=== PATIENT | female | born 1960 | race Caucasian/White ===

== ENCOUNTER 2016-05-12 14:49 | Emergency (ER) | payer OTHER ==
[2016-05-12 14:53] VITALS: BP 152/93; PULSE 100; RESP 18; TEMP 98.1
--- NOTE | 2016-05-12 15:20 | ED ---
ENT HPI - General Chief complaint: Dental/Oral Stated complaint: Dental Pain Time Seen by Provider: 05/12/16 14:54 Source: patient, RN notes reviewed Mode of arrival: ambulatory Limitations: no limitations - History of Present Illness Initial comments: 56 yo female presents to the ER with cc of right-sided dental pain. Patient states that she had 2 teeth extracted earlier this week. Patient patient has some pain signs right-sided she was sent. Patient states that she hasn't had any fever or chills. Patient states she has pain to touch. Patient is discharged from the area. Patient states she was concerned due to increasing swelling. That she should be evaluated. No pain radiating into the neck. No difficulty normal was in the mouth. Patient denies any recent fever, chills, shortness of breath, chest pain, back pain, abdominal pain, nausea vomiting, numbness or tingling, dysuria or hematuria, constipation or diarrhea, headaches or visual changes, or any other current symptoms. - Related Data Home Medications Medication Instructions Recorded Confirmed Benazepril [Lotensin] 80 mg PO DAILY 05/20/15 05/12/16 DULoxetine HCL [Cymbalta] 60 mg PO DAILY 05/20/15 05/12/16 Estrogens, Conjugated [Premarin] 0.625 mg PO DAILY 05/20/15 05/12/16 Hydrochlorothiazide [Hydrodiuril] 12.5 mg PO DAILY 05/20/15 05/12/16 Levothyroxine Sodium [Synthroid] 25 mcg PO DAILY 05/20/15 05/12/16 Ranitidine HCl [Zantac] 150 mg PO BID 05/20/15 05/12/16 Previous Rx's Medication Instructions Recorded Acetaminophen-Codeine 300-30mg 1 each PO Q6H PRN #20 tablet 07/24/15 [Tylenol #3] HYDROcodone/APAP 7.5-325MG [[place] 1 tab PO Q6HR PRN #20 tab 07/24/15 7.5-325] Ibuprofen [Motrin] 800 mg PO Q6HR PRN #30 tab 07/24/15 Hydrocodone/Acetaminophen [[place] 1 each PO Q6HR PRN #20 tab 08/15/15 5-325] HYDROcodone/APAP 5-325MG [[place] 1 tab PO Q4HR PRN #20 tab 10/27/15 5-325] Penicillin V Potassium [Pen Vee K] 500 mg PO TID #40 tab 05/12/16 traMADol HCl [Ultram] 50 mg PO Q4H PRN #20 tab 05/12/16 Allergies Allergy/AdvReac Type Severity Reaction Status Date / Time cefaclor [From Ceclor] Allergy Unknown Verified 05/12/16 14:53 prochlorperazine Allergy Unknown Verified 05/12/16 14:53 [From Compazine] prochlorperazine edisylate Allergy Unknown Verified 05/12/16 14:53 [From Compazine] prochlorperazine maleate Allergy Unknown Verified 05/12/16 14:53 [From Compazine] tetracycline Allergy Nausea & Verified 05/12/16 14:53 Vomiting erythromycin base AdvReac Rash/Hives Verified 05/12/16 14:53 levofloxacin [From Levaquin] AdvReac Rash/Hives Verified 05/12/16 14:53 Review of Systems ROS Statement: Those systems with pertinent positive or pertinent negative responses have been documented in the HPI. ROS Other: All systems not noted in ROS Statement are negative. Past Medical History Past Medical History: Hypertension, Thyroid Disorder Additional Past Medical History / Comment(s): back pain History of Any Multi-Drug Resistant Organisms: None Reported Past Surgical History: Appendectomy, Hernia Repair, Hysterectomy, Tonsillectomy Additional Past Surgical History / Comment(s): hernia repair, (R) carpel tunnel surgery, (L) breast lumpectomy Past Psychological History: Depression Smoking Status: Current every day smoker Past Alcohol Use History: None Reported Past Drug Use History: None Reported General Exam Limitations: no limitations General appearance: alert, in no apparent distress Eye exam: Present: normal appearance, PERRL, EOMI. Absent: scleral icterus, conjunctival injection, periorbital swelling ENT exam: Present: normal exam, mucous membranes moist Expanded Ear exam: Present: normal external inspection Mouth exam: Absent: normal external inspection (Right-sided swelling of the face ), drooling, trismus, muffled voice, tongue normal, tongue elevation, laceration Teeth exam: Present: dental caries (Diffuse), gingival enlargement (tooth #30 and 29) Throat exam: normal inspection, tonsillar erythema Neck exam: Present: normal inspection. Absent: tenderness, meningismus, lymphadenopathy Respiratory exam: Present: normal lung sounds bilaterally. Absent: respiratory distress, wheezes, rales, rhonchi, stridor Cardiovascular Exam: Present: regular rate, normal rhythm, normal heart sounds. Absent: systolic murmur, diastolic murmur, rubs, gallop, clicks Neurological exam: Present: alert, oriented X3, CN II-XII intact. Absent: motor sensory deficit Psychiatric exam: Present: normal affect, normal mood Skin exam: Present: warm, dry, intact, normal color. Absent: rash Course Vital Signs 05/12/16 14:50 Temperature 98.1 F Pulse Rate 100 Respiratory 18 Rate Blood Pressure 152/93 O2 Sat by Pulse 98 Oximetry Medical Decision Making - Medical Decision Making 56-year-old female presents emergency Department chief complaint right-sided dental pain. This started over the last few days after having her teeth extracted With the patient and asked pain medication. We discussed close follow-up with her doctor. We'll start her on antibiotics and pain medication. We discussed follow-up with her dentist and return parameters. Patient stated that she understood all questions have been answered. She will be discharged home. Disposition Clinical Impression: Pain, dental Disposition: HOME SELF-CARE Condition: Stable Instructions: Toothache (ED) Additional Instructions: Please use medication as discussed. Please follow up with family doctor if symptoms have not improved over the next two days. Please return to the emergency room if your symptoms increase or worsen or for any other concerns. [facility] [id number] [place] [address] [phone] (existing clients only) For new clients: [phone] 1st consult: $50 (includes Xrays) Usually 30% less then private dentist for visits after. [employer] Have to pay $50 for Xrays anmd rest is covered. [phone] Prescriptions: Penicillin V Potassium [Pen Vee K] 500 mg PO TID #40 tab traMADol HCl [Ultram] 50 mg PO Q4H PRN #20 tab PRN Reason: Pain Referrals: Deena Figueroa MD [Primary Care Provider] - 1-2 days Time of Disposition: 15:20
== END 2016-05-12 15:25 | disposition home or self-care (01) ==
LOC: EC 14:49
DX: K02.9 Dental caries, unspecified (principal); I10 Essential (primary) hypertension; E07.9 Disorder of thyroid, unspecified; F32.9 Major depressive disorder, single episode, unspecified; F17.200 Nicotine dependence, unspecified, uncomplicated; Z79.899 Other long term (current) drug therapy; Z88.1 Allergy status to other antibiotic agents; Z88.8 Allergy status to other drugs, medicaments and biological substances; Z98.890 Other specified postprocedural states
CPT/HCPCS: 99282

== ENCOUNTER 2016-09-19 23:01 | Inpatient (IN) | payer MEDICAID, OTHER ==
[2016-09-19] MEDS ORDERED: SODIUM CHLORIDE 0.9% 1,000 ML IV STA (23:40)
[2016-09-19] MEDS ORDERED: LORazepam 1 MG TAB PO STA (23:41)
--- NOTE | 2016-09-19 23:46 | ED ---
Psych HPI - General Chief Complaint: Psychiatric Symptoms Stated Complaint: mental health Time Seen by Provider: 09/19/16 23:19 Source: patient Mode of arrival: ambulatory - History of Present Illness Initial Comments: 6 years old female with a history of depression depression has got worse over the last 6 months and she feels that she does not deserve to live. She tried suicide 2 days ago she approximately 12:30 pills so far but supple trying to kill herself. There before yesterday she took handful of Cymbalta and Norvasc. He continued to feel suicidal and is crying and stating that she do not deserve to live. She denies any headaches no chest pain or shortness of breath no abdominal pain no frequency urgency dysuria - Related Data Home Medications Medication Instructions Recorded Confirmed Benazepril [Lotensin] 80 mg PO DAILY 05/20/15 09/19/16 DULoxetine HCL [Cymbalta] 60 mg PO DAILY 05/20/15 09/19/16 Estrogens, Conjugated [Premarin] 0.625 mg PO DAILY 05/20/15 09/19/16 Hydrochlorothiazide [Hydrodiuril] 12.5 mg PO DAILY 05/20/15 09/19/16 Levothyroxine Sodium [Synthroid] 25 mcg PO DAILY 05/20/15 09/19/16 Ranitidine HCl [Zantac] 150 mg PO BID 05/20/15 09/19/16 Previous Rx's Medication Instructions Recorded Acetaminophen-Codeine 300-30mg 1 each PO Q6H PRN #20 tablet 07/24/15 [Tylenol #3] HYDROcodone/APAP 7.5-325MG [[place] 1 tab PO Q6HR PRN #20 tab 07/24/15 7.5-325] Ibuprofen [Motrin] 800 mg PO Q6HR PRN #30 tab 07/24/15 traMADol HCl [Ultram] 50 mg PO Q4H PRN #20 tab 05/12/16 Allergies Allergy/AdvReac Type Severity Reaction Status Date / Time cefaclor [From Ceclor] Allergy Unknown Verified 09/19/16 23:12 prochlorperazine Allergy Unknown Verified 09/19/16 23:12 [From Compazine] prochlorperazine edisylate Allergy Unknown Verified 09/19/16 23:12 [From Compazine] prochlorperazine maleate Allergy Unknown Verified 09/19/16 23:12 [From Compazine] tetracycline Allergy Nausea & Verified 09/19/16 23:12 Vomiting erythromycin base AdvReac Rash/Hives Verified 09/19/16 23:12 levofloxacin [From Levaquin] AdvReac Rash/Hives Verified 09/19/16 23:12 Review of Systems ROS Statement: Those systems with pertinent positive or pertinent negative responses have been documented in the HPI. ROS Other: All systems not noted in ROS Statement are negative. Past Medical History Past Medical History: Hypertension, Thyroid Disorder Additional Past Medical History / Comment(s): back pain History of Any Multi-Drug Resistant Organisms: None Reported Past Surgical History: Appendectomy, Hernia Repair, Hysterectomy, Tonsillectomy Additional Past Surgical History / Comment(s): hernia repair, (R) carpel tunnel surgery, (L) breast lumpectomy Past Psychological History: Depression Smoking Status: Current every day smoker Past Alcohol Use History: None Reported Past Drug Use History: None Reported General Exam - General Exam Comments Initial Comments: General: The patient is awake and alert, in severe distress, she is crying Skin: Skin is warm and dry and no rashes or lesions are noted. Eye: Pupils are equal, round and reactive to light, extra-ocular movements are intact; there is normal conjunctiva bilaterally. Ears, nose, mouth and throat: There are moist mucous membranes and no oral lesions. Neck: The neck is supple, there is no tenderness or JVD. Cardiovascular: There is a regular rate and rhythm. No murmur, rub or gallop is appreciated. Respiratory: To auscultation bilateral, no wheezing no rhonchi no distress respiratory pina noticed Gastrointestinal: Soft, non-distended, non-tender abdomen without masses or organomegaly noted. There is no rebound or guarding present. Bowel sounds are unremarkable. Back: There is no tenderness to palpation in the midline. There is no obvious deformity. Musculoskeletal: Normal ROM, no tenderness, There is no pedal edema. There is no calf tenderness or swelling. No cords were appreciated. Neurological: CN II-XII intact, Cranial nerves III through XII are intact. There are no obvious motor or sensory deficits. Coordination appears grossly intact. Speech is normal. Psychiatric: Cooperative, depressed, wants to kill herself when she attempted suicide twice in's. Limitations: no limitations Course Vital Signs 09/19/16 09/19/16 23:08 23:31 Temperature 98.7 F Pulse Rate 87 85 Respiratory 18 16 Rate Blood Pressure 88/51 92/53 O2 Sat by Pulse 95 96 Oximetry - Reevaluation(s) Reevaluation #1: 09/19/16 23:46 I have requested all and to call to poison control center and Interactions him in the meantime hydrate her with normal saline and give her some Ativan to calm her 09/20/16 01:35 Did speak with the poison control and they said she is fine from the medical standpoint she is clear she does have a bit of hypertension now blood pressure has come up above 100 she got 1 L of fluid and given another liter of fluids wide and then she be treated for the psych floor also reviewed her labs her labs look quite good Reevaluation #2: 09/20/16 01:36 EKG is normal sinus rhythm ventricular rate is 73 DE interval is 142 QRS duration is 90 QT/QTC 398/438 review of this EKG does not reveal any ST elevation or ST depression Medical Decision Making - Lab Data Result diagrams: 09/19/16 23:58 09/19/16 23:58 Lab Results 09/19/16 09/19/16 09/20/16 Range/Units 23:58 23:58 00:06 WBC 12.2 H (3.8-10.6) k/uL RBC 4.53 (3.80-5.40) m/uL Hgb 14.3 (11.4-16.0) gm/dL Hct 40.9 (34.0-46.0) % MCV 90.2 (80.0-100.0) fL MCH 31.6 (25.0-35.0) pg MCHC 35.1 (31.0-37.0) g/dL RDW 13.9 (11.5-15.5) % Plt Count 349 (150-450) k/uL Neutrophils % 54 % Lymphocytes % 37 % Monocytes % 5 % Eosinophils % 1 % Basophils % 1 % Neutrophils # 6.6 (1.3-7.7) k/uL Lymphocytes # 4.5 (1.0-4.8) k/uL Monocytes # 0.6 (0-1.0) k/uL Eosinophils # 0.1 (0-0.7) k/uL Basophils # 0.2 (0-0.2) k/uL Sodium 140 (137-145) mmol/L Potassium 3.6 (3.5-5.1) mmol/L Chloride 100 (98-107) mmol/L Carbon Dioxide 28 (22-30) mmol/L Anion Gap 12 mmol/L BUN 20 H (7-17) mg/dL Creatinine 1.20 H (0.52-1.04) mg/dL Est GFR (MDRD) Af Amer 56 (>60 ml/min/1.73 sqM) Est GFR (MDRD) Non-Af 46 (>60 ml/min/1.73 sqM) Glucose 144 H (74-99) mg/dL Plasma Lactic Acid Jemal (0.7-2.0) mmol/L Calcium 9.9 (8.4-10.2) mg/dL Total Bilirubin 0.4 (0.2-1.3) mg/dL AST 19 (14-36) U/L ALT 28 (9-52) U/L Alkaline Phosphatase 74 (38-126) U/L Total Protein 6.7 (6.3-8.2) g/dL Albumin 4.2 (3.5-5.0) g/dL Salicylates <1.0 mg/dL Urine Opiates Screen Detected H (NotDetected) Ur Oxycodone Screen Detected H (NotDetected) Urine Methadone Screen Not Detected (NotDetected) Ur Propoxyphene Screen Not Detected (NotDetected) Acetaminophen <10.0 ug/mL Ur Barbiturates Screen Detected H (NotDetected) U Tricyclic Antidepress Detected H (NotDetected) Ur Phencyclidine Scrn Not Detected (NotDetected) Ur Amphetamines Screen Not Detected (NotDetected) U Methamphetamines Scrn Not Detected (NotDetected) U Benzodiazepines Scrn Detected H (NotDetected) Urine Cocaine Screen Not Detected (NotDetected) U Marijuana (THC) Screen Detected H (NotDetected) Serum Alcohol <10 mg/dL 09/20/16 Range/Units 00:06 WBC (3.8-10.6) k/uL RBC (3.80-5.40) m/uL Hgb (11.4-16.0) gm/dL Hct (34.0-46.0) % MCV (80.0-100.0) fL MCH (25.0-35.0) pg MCHC (31.0-37.0) g/dL RDW (11.5-15.5) % Plt Count (150-450) k/uL Neutrophils % % Lymphocytes % % Monocytes % % Eosinophils % % Basophils % % Neutrophils # (1.3-7.7) k/uL Lymphocytes # (1.0-4.8) k/uL Monocytes # (0-1.0) k/uL Eosinophils # (0-0.7) k/uL Basophils # (0-0.2) k/uL Sodium (137-145) mmol/L Potassium (3.5-5.1) mmol/L Chloride (98-107) mmol/L Carbon Dioxide (22-30) mmol/L Anion Gap mmol/L BUN (7-17) mg/dL Creatinine (0.52-1.04) mg/dL Est GFR (MDRD) Af Amer (>60 ml/min/1.73 sqM) Est GFR (MDRD) Non-Af (>60 ml/min/1.73 sqM) Glucose (74-99) mg/dL Plasma Lactic Acid Jemal 1.8 (0.7-2.0) mmol/L Calcium (8.4-10.2) mg/dL Total Bilirubin (0.2-1.3) mg/dL AST (14-36) U/L ALT (9-52) U/L Alkaline Phosphatase (38-126) U/L Total Protein (6.3-8.2) g/dL Albumin (3.5-5.0) g/dL Salicylates mg/dL Urine Opiates Screen (NotDetected) Ur Oxycodone Screen (NotDetected) Urine Methadone Screen (NotDetected) Ur Propoxyphene Screen (NotDetected) Acetaminophen ug/mL Ur Barbiturates Screen (NotDetected) U Tricyclic Antidepress (NotDetected) Ur Phencyclidine Scrn (NotDetected) Ur Amphetamines Screen (NotDetected) U Methamphetamines Scrn (NotDetected) U Benzodiazepines Scrn (NotDetected) Urine Cocaine Screen (NotDetected) U Marijuana (THC) Screen (NotDetected) Serum Alcohol mg/dL Disposition Clinical Impression: Suicide attempt, Hypotension, Drug overdose Disposition: ADMITTED IP TO THIS HOSP Referrals: Deena Figueroa MD [Primary Care Provider] - 1-2 days
[2016-09-20 00:10] LABS: Basophils # (A) 0.2 k/uL (0-0.2); Basophils % (A) 1 %; CH 31.9; CHCM 35.5; Eosinophils # (A) 0.1 k/uL (0-0.7); Eosinophils % (A) 1 %; HCT 40.9 % (34.0-46.0); HDW 2.41; HGB 14.3 gm/dL (11.4-16.0); Luc # (Auto) 0.22; Luc % (Auto) 2; Lymphocytes # (A) 4.5 k/uL (1.0-4.8); Lymphocytes % (A) 37 %; MCH 31.6 pg (25.0-35.0); MCHC 35.1 g/dL (31.0-37.0); MCV 90.2 fL (80.0-100.0); Mean Platelet Volume 8.4; Monocytes # (A) 0.6 k/uL (0-1.0); Monocytes % (A) 5 %; Neutrophils # (A) 6.6 k/uL (1.3-7.7); Neutrophils % (A) 54 %; RBC 4.53 m/uL (3.80-5.40); RDW 13.9 % (11.5-15.5); WBC 12.2 k/uL (3.8-10.6); WBC (Perox) 11.51
[2016-09-20 00:21] LABS: ALT 28 U/L (9-52); AST 19 U/L (14-36); Acetaminophen <10.0 ug/mL; Alcohol <10 mg/dL; Alkaline Phosphatase 74 U/L (38-126); Anion Gap 12 mmol/L; Blood Urea Nitrogen 20 mg/dL (7-17); Calcium 9.9 mg/dL (8.4-10.2); Carbon Dioxide 28 mmol/L (22-30); Chloride 100 mmol/L (98-107); Glucose 144 mg/dL (74-99); Non-African American GFR(MDRD) 46 (>60 ml/min/1.73 sqM); Potassium 3.6 mmol/L (3.5-5.1); Salicylate <1.0 mg/dL; Sodium 140 mmol/L (137-145); Total Bilirubin 0.4 mg/dL (0.2-1.3); Total Protein 6.7 g/dL (6.3-8.2)
[2016-09-20] MEDS ORDERED: SODIUM CHLORIDE 0.9% 1,000 ML IV ONE (01:45)
[2016-09-20] MEDS ORDERED: MAG HYDROX/AL HYDROX/SIMETH 30 ML CUP PO PRN (02:38)
[2016-09-20] MEDS ORDERED: MAGNESIUM HYDROXIDE 2,400 MG/10 ML CUP PO PRN (02:38)
[2016-09-20] MEDS ORDERED: ZIPRASIDONE 20 MG VIAL IM PRN (02:38)
[2016-09-20 03:33] LABS: Appearance,Urine Cloudy (Clear); Bacteria,Urine Rare /hpf; Bilirubin,Urine Negative (Negative); Glucose,Urine (UA) 2+ (Negative); Ketones,Urine Trace (Negative); Leukocyte Esterase,Urine Negative (Negative); Mucus,Urine Rare /hpf; Nitrite,Urine Negative (Negative); Particle Count 8120; Protein,Urine Trace (Negative); RBC,Urine 2 /hpf (0-5); Specific Gravity,Urine 1.029 (1.001-1.035); Squamous Epithelial Cell,Urine 9 /hpf (0-4); UA Billing (MACRO vs. MICRO) MICRO; WBC,Urine 1 /hpf (0-5)
[2016-09-20] MEDS: traZODone HCL 100 MG TAB PO SCH ×2 (04:03→20:33)
[2016-09-20 04:46] VITALS: BMI 32.3
[2016-09-20] MEDS: LEVOTHYROXINE 25 MCG TAB PO SCH (05:36)
[2016-09-20] MEDS: NICOTINE 14MG/24HR PATCH TRANSDERM SCH (08:46)
[2016-09-20] MEDS: FAMOTIDINE 20 MG TAB PO SCH ×2 (08:47→20:33)
[2016-09-20] MEDS: ESTROGENS, CONJUGATED 0.625 MG TAB PO SCH (08:48)
[2016-09-20] MEDS ORDERED: LISINOPRIL 20 MG TAB PO SCH (09:00)
[2016-09-20] MEDS ORDERED: HYDROCHLOROTHIAZIDE 25 MG TAB PO SCH (09:00)
[2016-09-20] MEDS ORDERED: amLODIPine 5 MG TAB PO SCH (09:00)
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
[2016-09-20] MEDS ORDERED: IPRATROPIUM-ALBUTEROL 3 ML NEB INHALATION PRN (14:28)
--- NOTE | 2016-09-20 14:33 | P.CONS ---
History of Present Illness - Reason for Consult Lightheadedness, hypotension. - History of Present Illness 56-year-old female admitted secondary to severe depression and suicide attempt twice to psychiatric unit. Medicine was consulted for medical clearance. Patient was complaining of lightheadedness and neck pain. Patient blood pressures are low and lowest systolic blood pressure is as low as 80. Patient is on 3 antidepressants medications including hydrochlorothiazide, amlodipine and lisinopril. I'm discontinued and hydrochlorothiazide and amlodipine and cutting down lisinopril dose from 80 mg daily to 10 mg daily with monitoring of blood pressure. Patient has cervical degenerative neck disease because of which patient is comparing of neck pain without any radicular symptoms or weakness in the arms. Patient denied any fever, chills, nausea, dysuria. Patient does smoke and does have minimal decreased air entry in the right lung kwok patient was started on Symbicort and albuterol ipratropium nebulizations. Review of Systems REVIEW OF SYSTEMS: CONSTITUTIONAL: No fever, no malaise, no fatigue. HEENT: No recent visual problems or hearing problems. Denied any sore throat. CARDIOVASCULAR: No chest pain, orthopnea, PND, no palpitations, no syncope. Minimal lightheadedness PULMONARY: No shortness of breath, no cough, no hemoptysis. GASTROINTESTINAL: No diarrhea, no nausea, no vomiting, no abdominal pain. Normoactive bowel sounds. NEUROLOGICAL: No headaches, no weakness, no numbness. HEMATOLOGICAL: Denies any bleeding or petechiae. GENITOURINARY: Denies any burning micturition, frequency, or urgency. MUSCULOSKELETAL/RHEUMATOLOGICAL: Denies any joint pain, swelling, or any muscle pain. ENDOCRINE: Denies any polyuria or polydipsia. The rest of the 14-point review of systems is negative. Past Medical History Past Medical History: COPD, Hypertension, Thyroid Disorder Additional Past Medical History / Comment(s): back pain History of Any Multi-Drug Resistant Organisms: None Reported Past Surgical History: Appendectomy, Hernia Repair, Hysterectomy, Tonsillectomy Additional Past Surgical History / Comment(s): hernia repair, (R) carpel tunnel surgery, (L) breast lumpectomy Past Psychological History: Depression Smoking Status: Current every day smoker Past Alcohol Use History: None Reported Past Drug Use History: Marijuana, Prescription Drug Abuse Medications and Allergies Home Medications Medication Instructions Recorded Confirmed Type DULoxetine HCL [Cymbalta] 60 mg PO DAILY 05/20/15 09/20/16 History Estrogens, Conjugated [Premarin] 0.625 mg PO DAILY 05/20/15 09/20/16 History Levothyroxine Sodium [Synthroid] 25 mcg PO DAILY 05/20/15 09/20/16 History Ranitidine HCl [Zantac] 150 mg PO BID 05/20/15 09/20/16 History Benazepril HCl [Benazepril HCl] 40 mg PO BID 09/20/16 09/20/16 History Butalb/APAP/Caff 50-325-40Mg 1 tab PO DAILY PRN 09/20/16 09/20/16 History [Fioricet 50-325-40] Hydrochlorothiazide 25 mg PO DAILY 09/20/16 09/20/16 History [Hydrochlorothiazide] amLODIPine [Norvasc] 5 mg PO DAILY 09/20/16 09/20/16 History tiZANidine [Zanaflex] 4 - 8 mg PO HS 09/20/16 09/20/16 History Allergies Allergy/AdvReac Type Severity Reaction Status Date / Time cefaclor [From Ceclor] Allergy Unknown Verified 09/19/16 23:12 prochlorperazine Allergy Unknown Verified 09/19/16 23:12 [From Compazine] prochlorperazine edisylate Allergy Unknown Verified 09/19/16 23:12 [From Compazine] prochlorperazine maleate Allergy Unknown Verified 09/19/16 23:12 [From Compazine] tetracycline Allergy Nausea & Verified 09/19/16 23:12 Vomiting erythromycin base AdvReac Rash/Hives Verified 09/19/16 23:12 levofloxacin [From Levaquin] AdvReac Rash/Hives Verified 09/19/16 23:12 Physical Exam Vitals: Vital Signs Temp Pulse Pulse Pulse Resp BP BP 09/20/16 08:50 84 16 83/50 09/20/16 06:50 97.6 F 76 18 09/20/16 04:38 97.0 F L 74 20 09/20/16 03:01 83 18 95/59 09/20/16 01:46 78 16 100/62 09/19/16 23:31 85 16 92/53 09/19/16 23:08 98.7 F 87 18 88/51 BP Pulse Ox 09/20/16 08:50 09/20/16 06:50 78/50 09/20/16 04:38 98/61 97 09/20/16 03:01 93 L 09/20/16 01:46 98 09/19/16 23:31 96 09/19/16 23:08 95 Intake and Output 09/19/16 09/20/16 09/20/16 22:59 06:59 14:59 Other: Weight 77.7 kg PHYSICAL EXAMINATION: GENERAL: The patient is alert and oriented x3, not in any acute distress. Well developed, well nourished. HEENT: Pupils are round and equally reacting to light. EOMI. No scleral icterus. No conjunctival pallor. Normocephalic, atraumatic. No pharyngeal erythema. No thyromegaly. CARDIOVASCULAR: S1 and S2 present. No murmurs, rubs, or gallops. PULMONARY: Chest is clear to auscultation, no wheezing or crackles. ABDOMEN: Soft, nontender, nondistended, normoactive bowel sounds. No palpable organomegaly. MUSCULOSKELETAL: No joint swelling or deformity. EXTREMITIES: No cyanosis, clubbing, or pedal edema. NEUROLOGICAL: Gross neurological examination did not reveal any focal deficits. SKIN: No rashes. Results CBC & Chem 7: 09/19/16 23:58 09/19/16 23:58 Labs: Abnormal Lab Results - Last 24 Hours (Table) 09/19/16 09/19/16 09/20/16 Range/Units 23:58 23:58 00:06 WBC 12.2 H (3.8-10.6) k/uL BUN 20 H (7-17) mg/dL Creatinine 1.20 H (0.52-1.04) mg/dL Glucose 144 H (74-99) mg/dL Urine Appearance (Clear) Urine Protein (Negative) Urine Glucose (UA) (Negative) Urine Ketones (Negative) Ur Squamous Epith Cells (0-4) /hpf Urine Bacteria (None) /hpf Hyaline Casts (0-2) /lpf Urine Mucus (None) /hpf Urine Opiates Screen Detected H (NotDetected) Ur Oxycodone Screen Detected H (NotDetected) Ur Barbiturates Screen Detected H (NotDetected) U Tricyclic Antidepress Detected H (NotDetected) U Benzodiazepines Scrn Detected H (NotDetected) U Marijuana (THC) Screen Detected H (NotDetected) 09/20/16 Range/Units 00:06 WBC (3.8-10.6) k/uL BUN (7-17) mg/dL Creatinine (0.52-1.04) mg/dL Glucose (74-99) mg/dL Urine Appearance Cloudy H (Clear) Urine Protein Trace H (Negative) Urine Glucose (UA) 2+ H (Negative) Urine Ketones Trace H (Negative) Ur Squamous Epith Cells 9 H (0-4) /hpf Urine Bacteria Rare H (None) /hpf Hyaline Casts 9 H (0-2) /lpf Urine Mucus Rare H (None) /hpf Urine Opiates Screen (NotDetected) Ur Oxycodone Screen (NotDetected) Ur Barbiturates Screen (NotDetected) U Tricyclic Antidepress (NotDetected) U Benzodiazepines Scrn (NotDetected) U Marijuana (THC) Screen (NotDetected) Assessment and Plan Plan: #1 lightheadedness: Secondary to hypotension related to antidepressant medications and medication regimen changes as mentioned in the interval history. #2 COPD with continued smoking, patient is not in note exacerbation but does have minimally decreased air entry into right lung kwok without any significant cough. Patient was started on Symbicort albuterol and ipratropium nebulizations as mentioned above. #3 cervical degenerative spine disease: Nonsteroidal anti-inflammatories and Tylenol. #4 minimally acute renal failure: Secondary to excessive antidepressant medications expected to improve with discontinue of these medications and patient will be increased to drink water creatinine is 1. or believe and this is in the form of tramadol is okay for her pain #5 hypothyroidism #6 severe depression and suicidal ideation management as per primary service #7 marijuana abuse counseling was provided #8 asymptomatic bacteriuria: Patient urine sample is mostly contaminated does not have any solid signs or symptoms of urinary tract infection will not require any antibiotics at this time.
[2016-09-20] MEDS: buPROPion 75 MG TAB PO SCH ×2 (15:40→20:31)
[2016-09-20] MEDS: tiZANidine 4 MG TAB PO SCH (20:30)
[2016-09-20] MEDS ORDERED: MIRTAZAPINE 15 MG TAB PO SCH (21:00)
[2016-09-20] MEDS: SYMBICORT 80-4.5 MCG INHALER INHALATION SCH (21:35)
[2016-09-21] MEDS: LEVOTHYROXINE 25 MCG TAB PO SCH (05:28)
[2016-09-21] MEDS: LISINOPRIL 10 MG TAB PO SCH (08:51)
[2016-09-21] MEDS: NICOTINE 14MG/24HR PATCH TRANSDERM SCH (08:51)
[2016-09-21] MEDS: ESTROGENS, CONJUGATED 0.625 MG TAB PO SCH (08:51)
[2016-09-21] MEDS: FAMOTIDINE 20 MG TAB PO SCH (08:52)
[2016-09-21] MEDS: tiZANidine 4 MG TAB PO SCH ×2 (08:52→20:33)
[2016-09-21] MEDS: buPROPion 75 MG TAB PO SCH ×3 (08:52→20:33)
[2016-09-21] MEDS: SYMBICORT 80-4.5 MCG INHALER INHALATION SCH ×2 (09:25→18:50)
--- NOTE | 2016-09-21 14:07 | P.PN ---
Progress Note - Text INTERVERAL HISTORY: Discussed patient during treatment team meeting, review of record, met with patient. Staff reports that she did not attend any groups. She has remained in her room in bed. Today she was paged to the nurse's station and she came. She reports that she has been sleeping during the day that is a surprise to her because when she was at home she was not sleeping at all. She does not report any problems with the Wellbutrin no increased anxiety and no decreased sleep. Today she reports that she is no longer upset or frustrated that she failed at killing herself. She states that she has a loving family and that she can't explain why she would do something like that. She states that she is going to let her boyfriend take care of her pills so that she doesn't have access to them if she does start to feel suicidal again. She states she is also going to have him get rid of any medication that she is not taking. She has taken a shower and wash her hair. MENTAL STATUS EXAM: Alert and oriented [address], fair eye contact. Speech low volume with decreased rate and production but more than yesterday, with spontaneous speech. Coherent logical and goal directed TP no HUMAIRA no FOI no delusions no ideas of reference Mood dysphoric, affect full range decreased intensity Denies suicidal ideation, no homicidal ideation Insight Limited judgment grossly intact for treatment purposes IMPRESSIONS: 56-year-old single female brought into the emergency room by her long-term boyfriend because she made a suicide attempt 2 days in a row, she is upset that she was unsuccessful, feels hopeless worthless useless, dysphoric, insomnia with disturbed sleep, psychomotor retardation but a coherent and logical goal directed thought process. No auditory or visual hallucinations no delusions or paranoid ideation reported. Concentration and memory is impaired, poor ADLs. Today September 21 she is showing improved hygiene, more eye contact more spontaneous speech. Still dysphoric but now she is no longer wishing that she had succeeded with her suicide overdoses. Major depressive disorder, recurrent, severe Suicide attempt 2 times in 2 days Cannabis use disorder, mild PLAN: Continue inpatient psychiatric admission, for safety and treatment. Suicide precautions every 15 minutes Hospitalist to assess physical problems including hypertension. Labs reviewed Start Wellbutrin XL 300mg tomorrow morning. D/C Remeron Trazodone 100 mg daily at bedtime when necessary insomnia Milieu therapy.
[2016-09-22] MEDS: traZODone HCL 100 MG TAB PO PRN ×2 (00:07→22:24)
[2016-09-22] MEDS: LEVOTHYROXINE 25 MCG TAB PO SCH (06:28)
[2016-09-22] MEDS: tiZANidine 4 MG TAB PO SCH ×2 (08:38→20:04)
[2016-09-22] MEDS: ESTROGENS, CONJUGATED 0.625 MG TAB PO SCH (08:38)
[2016-09-22] MEDS: NICOTINE 14MG/24HR PATCH TRANSDERM SCH (08:38)
[2016-09-22] MEDS: LISINOPRIL 10 MG TAB PO SCH (08:38)
[2016-09-22] MEDS: FAMOTIDINE 20 MG TAB PO SCH (08:38)
[2016-09-22] MEDS: buPROPion XL 300 MG TAB.ER.24H PO SCH (08:39)
[2016-09-22] MEDS: SYMBICORT 80-4.5 MCG INHALER INHALATION SCH ×2 (09:00→19:30)
--- NOTE | 2016-09-22 15:19 | P.PN ---
Progress Note - Text Date of service: 09/22/2016 Chief complaint: "I feel better today" Subjective: The patient has been seen today as follow-up, chart reviewed, case discussed with the treatment team. Patient reports her depression is much less today and she denied suicidal ideation. The patient slept about 6 hours and reports feeling rested this morning. She reported participation in groups and other milieu activities. The patient hasn't family meeting tomorrow to address discharge plan. The patient denies any manic symptoms including sustained period of time with elevated or irritable mood, impulsive or irrational behavior , inflated self-esteem, or absence need to sleep due to increases goal-directed activities. The patient denies any auditory or visual hallucinations. Also the patient denies any paranoid ideation. Review of other systems: Patient denies any physical symptoms besides what has been mentioned above. No breathing problems, no chest pain reported today. Objective: Vitals has been reviewed. Mental status examination; Appearance: The patient appears stated age, adequately groomed, no specific features. Gait/posture: Normal gait, Normal arm swinging: No abnormal movements. Attitude and behavior: engaged, cooperative, normal eye contact. Motor activity: Normal psychomotor activity Speech: Normal rate, rest, and articulated Mood: Anxious Affect: Constricted Thought form: goal-directed, linear, coherent. Thought content: Non-delusional, denies suicidal thoughts, denies homicidal thoughts, denies intentions or plans. Perception: Denies any auditory or visual hallucinations Attention: No impairment. Patient was able to repeat serial 7. Orientation: Patient patient was fully oriented to time place person and situation. Insight: Patient has limited insight about his psychiatric disorder. Judgment: Patient has limited judgment about his psychiatric treatment. Assessment: Major depressive disorder, recurrent, severe Cannabis use disorder, mild Plan: Continue with inpatient psychiatric hospitalization for monitoring and continue treatment. Continue group therapy and other unit activities. Continue follow up with medical team to address physical problems including hypertension and hypothyroidism. Continue psychiatric medications: Wellbutrin for depression, trazodone for depression and insomnia. Discharge planning is ongoing.
[2016-09-22] MEDS: hydrOXYzine PAMOATE 25 MG CAP PO PRN (20:06)
[2016-09-23] MEDS: LEVOTHYROXINE 25 MCG TAB PO SCH (06:04)
[2016-09-23] MEDS: buPROPion XL 300 MG TAB.ER.24H PO SCH (08:36)
[2016-09-23] MEDS: tiZANidine 4 MG TAB PO SCH ×2 (08:36→21:03)
[2016-09-23] MEDS: NICOTINE 14MG/24HR PATCH TRANSDERM SCH (08:36)
[2016-09-23] MEDS: FAMOTIDINE 20 MG TAB PO SCH (08:36)
[2016-09-23] MEDS: LISINOPRIL 10 MG TAB PO SCH ×2 (08:36→21:04)
[2016-09-23] MEDS: ESTROGENS, CONJUGATED 0.625 MG TAB PO SCH (08:36)
[2016-09-23] MEDS: SYMBICORT 80-4.5 MCG INHALER INHALATION SCH ×2 (09:00→21:01)
[2016-09-23] MEDS: ACETAMINOPHEN TAB 325 MG TAB PO PRN ×2 (10:51→14:48)
--- NOTE | 2016-09-23 11:07 | P.PN ---
Progress Note - Text Date of service: 09/23/2016 Chief complaint: "My legs are swollen and I feel puffy today " Subjective: The patient has been seen today as follow-up, chart reviewed, case discussed with the treatment team. Patient slept about 4 hours last night. Patient has been going to groups and other unit activities. Patient reports no appetite problems. Patient reports has been feeling increase swelling in her legs and puffiness in her face and her hands. Patient reports has been taking HCTZ as home medications but never resumed when she came to the hospital. Discussed with nurses to call medical team to evaluated adding HCTZ. Patient denies feeling hopeless and he denies severe depression or severe anxiety. She denies suicidal or homicidal thoughts, intention, or plans reviewed The patient denies any manic symptoms. The patient denies any auditory or visual hallucinations. Also the patient denies any paranoid ideation. Review of other systems: Patient denies any physical symptoms besides what has been mentioned above. No breathing problems, no chest pain reported today. Objective: Vitals has been reviewed. Mental status examination; Appearance: The patient appears stated age, adequately groomed, no specific features. Gait/posture: Normal gait, Normal arm swinging: No abnormal movements. Attitude and behavior: engaged, cooperative, normal eye contact. Motor activity: Normal psychomotor activity Speech: Normal rate, rest, and articulated Mood: Anxious Affect: Constricted Thought form: goal-directed, linear, coherent. Thought content: Non-delusional, denies suicidal thoughts, denies homicidal thoughts, denies intentions or plans. Perception: Denies any auditory or visual hallucinations Attention: No impairment. Orientation: Patient patient was fully oriented to time place person and situation. Insight: Patient has limited insight about his psychiatric disorder. Judgment: Patient has limited judgment about his psychiatric treatment. Assessment: Major depressive disorder, recurrent, severe Cannabis use disorder, mild Plan: Continue with inpatient psychiatric hospitalization for monitoring and continue treatment. Continue group therapy and other unit activities. Continue follow up with medical team to address leg edema and other physical problems including hypertension and hypothyroidism. Continue psychiatric medications: Wellbutrin for depression, trazodone for depression and insomnia. Discharge planning is ongoing.
[2016-09-23] MEDS: amLODIPine 5 MG TAB PO SCH (12:35)
[2016-09-23] MEDS: HYDROCHLOROTHIAZIDE 25 MG TAB PO SCH (12:35)
[2016-09-23] MEDS ORDERED: cloNIDine HCL 0.1 MG TAB PO PRN (15:49)
--- NOTE | 2016-09-23 15:52 | P.PN ---
Subjective This 56-year-old woman who was admitted. Evaluation is complaining of a headache. Blood pressure is elevated. Patient also COPD. No chest pain or palpitation or shortness of breath. Objective - Vital Signs Vital signs: Vital Signs Temp 97.7 F 09/23/16 06:33 Pulse 69 09/23/16 12:36 Resp 16 09/23/16 12:36 BP 127/66 09/23/16 12:36 Pulse Ox 97 09/20/16 04:38 Intake & Output 09/22/16 09/23/16 09/23/16 18:59 06:59 18:59 Weight 79.8 kg - Exam On exam, alert and oriented x3. HEENT: Conjunctivae normal. eyes normal. NECK: No JVD. No thyroid enlargement. No LNs CARDIOVASCULAR: S1, S2 muffled. No murmur RESPIRATION: Breath sounds diminished in the bases. No rhonchi or crackles. No bronchial breathing. ABDOMEN: Soft, nontender . No guarding. no masses palpable. No ascites, No hepatosplenomegaly.Bowel sounds heard. LEGS: No edema. no swelling NERVOUS SYSTEM: Cranial N 2-12 grossly normal. Moves all 4 limbs. No focal deficits. No sensory deficit. No signs of cerebellar dysfucntion. Skin: no ulcer no rash Joints: No active swelling. No inflammation. Lymphatic system. No LN neck axilla or groin. - Labs CBC & Chem 7: 09/19/16 23:58 09/19/16 23:58 Assessment and Plan Plan: Assessment 1. Headache 2. Hypertension 3. COPD 4. Cervical DJD 5. Mild leg edema. Plan I would recommend to resume the home medication of Norvasc and hydrochloric acid. Increase the dose of lisinopril. Use when necessary clonidine. We'll be happy to review. Recommend repeat labs CBC and BMP.
[2016-09-23 16:25] LABS: Basophils % (A) 1 %; CHCM 34.1; Eosinophils # (A) 0.1 k/uL (0-0.7); Eosinophils % (A) 2 %; HCT 37.3 % (34.0-46.0); HDW 2.41; HGB 12.8 gm/dL (11.4-16.0); Luc # (Auto) 0.16; Luc % (Auto) 2; Lymphocytes # (A) 2.2 k/uL (1.0-4.8); Lymphocytes % (A) 34 %; MCH 31.4 pg (25.0-35.0); MCHC 34.3 g/dL (31.0-37.0); MCV 91.4 fL (80.0-100.0); Mean Platelet Volume 7.5; Monocytes # (A) 0.4 k/uL (0-1.0); Monocytes % (A) 6 %; Neutrophils # (A) 3.6 k/uL (1.3-7.7); Neutrophils % (A) 56 %; RBC 4.08 m/uL (3.80-5.40); RDW 13.4 % (11.5-15.5); WBC 6.5 k/uL (3.8-10.6); WBC (Perox) 6.66
[2016-09-23] MEDS ORDERED: IBUPROFEN 200 MG TAB PO PRN (16:31)
[2016-09-23 16:42] LABS: Anion Gap 8 mmol/L; Blood Urea Nitrogen 15 mg/dL (7-17); Carbon Dioxide 28 mmol/L (22-30); Chloride 102 mmol/L (98-107); Glucose 105 mg/dL (74-99); Non-African American GFR(MDRD) >60 (>60 ml/min/1.73 sqM); Potassium 4.4 mmol/L (3.5-5.1); Sodium 138 mmol/L (137-145)
[2016-09-23] MEDS: hydrOXYzine PAMOATE 25 MG CAP PO PRN (18:02)
[2016-09-23] MEDS ORDERED: FUROSEMIDE 40 MG TAB PO STA (18:14)
[2016-09-23] MEDS: traZODone HCL 100 MG TAB PO PRN (21:06)
[2016-09-24] MEDS: LEVOTHYROXINE 25 MCG TAB PO SCH (05:33)
[2016-09-24] MEDS: ACETAMINOPHEN TAB 325 MG TAB PO PRN ×2 (06:27→13:55)
[2016-09-24] MEDS: tiZANidine 4 MG TAB PO SCH (08:41)
[2016-09-24] MEDS: NICOTINE 14MG/24HR PATCH TRANSDERM SCH (08:41)
[2016-09-24] MEDS: HYDROCHLOROTHIAZIDE 25 MG TAB PO SCH (08:42)
[2016-09-24] MEDS: buPROPion XL 300 MG TAB.ER.24H PO SCH (08:42)
[2016-09-24] MEDS: ESTROGENS, CONJUGATED 0.625 MG TAB PO SCH (08:42)
[2016-09-24] MEDS: FAMOTIDINE 20 MG TAB PO SCH (08:42)
[2016-09-24] MEDS: amLODIPine 5 MG TAB PO SCH (08:42)
[2016-09-24] MEDS: LISINOPRIL 10 MG TAB PO SCH (08:42)
[2016-09-24] MEDS: SYMBICORT 80-4.5 MCG INHALER INHALATION SCH (09:02)
[2016-09-24 09:59] VITALS: TEMP 98.6
--- NOTE | 2016-09-24 10:07 | P.PN ---
Progress Note - Text INTERVERAL HISTORY: Discussed patient during treatment team meeting, review of record, met with patient. Staff reports over the weekend that she had elevated blood pressure, Dr. Mejía saw her yesterday and restarted her home medication, increase lisinopril, and a one-time dose of Lasix. Patient reports that she had a terrible headache yesterday and was afraid to tell anybody for fear that they would think she was drug seeking. Staff found her crying in her room related to the headache that she had. Her blood pressure remains elevated at this point. Otherwise patient states that she is feeling better, notes the irony of the fact that she tried to kill her self with blood pressure medicines, and now worried that her blood pressure is going to kill her. She is able to laugh at that and see that she has made progress in that she is no longer wanting to kill herself and wants to live. She is worried about her blood pressure but otherwise she says she is feeling better and that she wants to go home today if possible. MENTAL STATUS EXAM: Alert and oriented [address], good eye contact. Speech low volume with decreased rate and production but more than yesterday, with spontaneous speech. Coherent logical and goal directed TP no HUMAIRA no FOI no delusions no ideas of reference Mood neutral to euthymic, affect full range normal intensity Denies suicidal ideation, no homicidal ideation Insight Limited judgment grossly intact for treatment purposes IMPRESSIONS: 56-year-old single female brought into the emergency room by her long-term boyfriend because she made a suicide attempt 2 days in a row, she is upset that she was unsuccessful, feels hopeless worthless useless, dysphoric, insomnia with disturbed sleep, psychomotor retardation but a coherent and logical goal directed thought process. No auditory or visual hallucinations no delusions or paranoid ideation reported. Concentration and memory is impaired, poor ADLs. Today much improved, good eye contact euthymic mood, affect full range. No suicidal ideation. Appropriate concerned/worried about her elevated blood pressure. Major depressive disorder, recurrent, severe Suicide attempt 2 times in 2 days Cannabis use disorder, mild PLAN: Continue inpatient psychiatric admission, for safety and treatment. Suicide precautions every 15 minutes Recheck blood pressure, if it remains elevated hospitalist to reassess . If hypertension continues with additional antihypertensive medicines we may need to stop the Wellbutrin due to its potential to increase both systolic and diastolic blood pressure. If that is the case we will need to start another antidepressant Cymbalta failed, would probably try Celexa or Lexapro. Trazodone 100 mg daily at bedtime when necessary insomnia Milieu therapy. Vitals reviewed.
--- NOTE | 2016-09-24 12:20 | P.DS ---
Providers Date of admission: 09/20/16 02:32 Expected date of discharge: 09/24/16 Attending physician: Dodie Dickson MD Consults: 09/20/16 02:38 Consult Physician Routine Consulting Provider: Nestor Mejía Consult Reason/Comments: H&P, with medical followup Do you want consulting provider notified?: Yes, Notify in am Primary care physician: Henry Shaffer Hospital Course: BRIEF ADMISSION HISTORY: Patient was admitted on a voluntary form to the unit after making 2 suicide attempts with her hypertensive medications. She had tried the day previous and failed then the second suicide attempt her boyfriend discovered and brought her in. She was noted to be feeling depressed, hopeless, worthless, useless. HOSPITAL COURSE: Patient was noted to be poorly groomed, poor eye contact low volume and decreased spontaneous speech. She initially spent the first 2 days in her room not engaging in treatment. She was started on Wellbutrin 75 mg 3 times a day and titrated up to 300 mg XL every morning. She had some hypertension over the weekend this was treated with an increase of lisinopril, and to restart her Norvasc. She was also noted to have edema. The edema has resolved after one course of Lasix. Her sleep after she was given Lasix was interrupted due to having to urinate but otherwise she reports that her sleep is better. Today she reports that she is feeling much better and would like to go home. She has improved participation as well as attending groups. Cymbalta was discontinued when she arrived here. MENTAL STATUS EXAM: Alert and oriented [address] clothing, good eye contact. Speech low volume with decreased rate and production but more than yesterday, with spontaneous speech. Coherent logical and goal directed TP no HUMAIRA no FOI no delusions no ideas of reference Mood neutral to euthymic, affect full range normal intensity Denies suicidal ideation, no homicidal ideation Insight Limited judgment grossly intact for treatment purposes IMPRESSIONS: 56-year-old single female brought into the emergency room by her long-term boyfriend because she made a suicide attempt 2 days in a row, she is upset that she was unsuccessful, feels hopeless worthless useless, dysphoric, insomnia with disturbed sleep, psychomotor retardation but a coherent and logical goal directed thought process. No auditory or visual hallucinations no delusions or paranoid ideation reported. Concentration and memory is impaired, poor ADLs. Today much improved, good eye contact euthymic mood, affect full range. No suicidal ideation. Appropriate concerned/worried about her elevated blood pressure. Major depressive disorder, recurrent, severe Suicide attempt 2 times in 2 days Cannabis use disorder, mild PLAN: Blood pressure has been controlled. Will discharge today, social work will arrange follow-up care. Wellbutrin XL 300 mg every morning Trazodone 100 mg daily at bedtime when necessary insomnia Vistaril/hydroxyzine 25 mg by mouth every 3 times a day when necessary severe anxiety Pertinent Studies: none Procedures: none Patient Condition at Discharge: Stable Plan - Discharge Summary New Discharge Prescriptions: New buPROPion XL [Wellbutrin XL] 300 mg PO DAILY #30 tab hydrOXYzine PAMOATE [Vistaril] 25 mg PO Q6HR PRN #10 cap PRN Reason: Agitation Or Acute Anxiety Lisinopril [Zestril] 10 mg PO BID #60 tab traZODone HCL [Desyrel] 100 mg PO HS PRN #30 tab PRN Reason: Insomnia Continue Ranitidine HCl [Zantac] 150 mg PO BID Levothyroxine Sodium [Synthroid] 25 mcg PO DAILY Estrogens, Conjugated [Premarin] 0.625 mg PO DAILY Hydrochlorothiazide 25 mg PO DAILY amLODIPine [Norvasc] 5 mg PO DAILY Butalb/APAP/Caff 50-325-40Mg [Fioricet 50-325-40] 1 tab PO DAILY PRN PRN Reason: Headache Benazepril HCl 40 mg PO BID tiZANidine [Zanaflex] 4 - 8 mg PO HS Discontinued DULoxetine HCL [Cymbalta] 60 mg PO DAILY Discharge Medication List Estrogens, Conjugated [Premarin] 0.625 mg PO DAILY 05/20/15 [History] Levothyroxine Sodium [Synthroid] 25 mcg PO DAILY 05/20/15 [History] Ranitidine HCl [Zantac] 150 mg PO BID 05/20/15 [History] Benazepril HCl 40 mg PO BID 09/20/16 [History] Butalb/APAP/Caff 50-325-40Mg [Fioricet 50-325-40] 1 tab PO DAILY PRN 09/20/16 [ History] Hydrochlorothiazide 25 mg PO DAILY 09/20/16 [History] amLODIPine [Norvasc] 5 mg PO DAILY 09/20/16 [History] tiZANidine [Zanaflex] 4 - 8 mg PO HS 09/20/16 [History] Lisinopril [Zestril] 10 mg PO BID #60 tab 09/24/16 [Rx] buPROPion XL [Wellbutrin XL] 300 mg PO DAILY #30 tab 09/24/16 [Rx] hydrOXYzine PAMOATE [Vistaril] 25 mg PO Q6HR PRN #10 cap 09/24/16 [Rx] traZODone HCL [Desyrel] 100 mg PO HS PRN #30 tab 09/24/16 [Rx] Follow up Appointment(s)/Referral(s): Deena Figueroa MD [Primary Care Provider] - 1-2 days Discharge Disposition: HOME SELF-CARE
[2016-09-24 14:03] VITALS: BP 136/82; PULSE 80; RESP 18
== END 2016-09-24 14:20 | disposition home or self-care (01) | DRG 885 ==
LOC: EC 23:01 → 3MHU 09-20 02:32
PROVIDERS: ADMIT Psychiatry & Neurology Addiction Medicine; ATTEND Psychiatry & Neurology Addiction Medicine
DX: F33.2 Major depressive disorder, recurrent severe without psychotic features (principal); N17.9 Acute kidney failure, unspecified; E03.9 Hypothyroidism, unspecified; I95.9 Hypotension, unspecified; I10 Essential (primary) hypertension; F41.9 Anxiety disorder, unspecified; F17.200 Nicotine dependence, unspecified, uncomplicated; F12.10 Cannabis abuse, uncomplicated; G47.00 Insomnia, unspecified; J44.9 Chronic obstructive pulmonary disease, unspecified; M47.812 Spondylosis without myelopathy or radiculopathy, cervical region; T46.1X2A Poisoning by calcium-channel blockers, intentional self-harm, initial encounter; T43.212A Poisoning by selective serotonin and norepinephrine reuptake inhibitors, intentional self-harm, initial encounter; R82.71 Bacteriuria; R60.9 Edema, unspecified; Z79.899 Other long term (current) drug therapy; Z88.1 Allergy status to other antibiotic agents; Z88.8 Allergy status to other drugs, medicaments and biological substances; Y92.9 Unspecified place or not applicable
CPT/HCPCS: 36415; 80048; 80053; 80306; 80320; 81001; 82075; 83520; 83605; 84443; 85025; 93005; 94640; 96360; 96361; 99285

== ENCOUNTER → 2017-08-09 | Outpatient (CLI) | payer OTHER ==
--- NOTE | 2017-08-10 06:58 | CT ---
EXAMINATION TYPE: CT abdomen pelvis wo con DATE OF EXAM: 08/09/2017 COMPARISON: NONE HISTORY: right flank pain CT DLP: 702.5 mGycm Automated exposure control for dose reduction was used. TECHNIQUE: Helical acquisition of images was performed from the lung bases through the pelvis. FINDINGS: LUNG BASES: The liver measures nearly 20 cm craniocaudal and appears mildly prominent in its AP dimen xochilt and oblique transverse dimension. The caudate lobe is mildly. There is diffuse low-attenuation t hroughout the liver parenchyma, with a few small areas of sparing. There are no focal findings. No in trahepatic biliary dilation. LIVER/GB: No significant abnormality is appreciated. No focal findings; ductal anatomy unremarkable. PANCREAS: No significant abnormality is seen. SPLEEN: No significant abnormality is seen. ADRENALS: No significant abnormality is seen. KIDNEYS: No significant abnormality is seen. PERITONEAL CAVITY: No free air is visualized ABDOMINAL ADENOPATHY: None visualized REPRODUCTIVE ORGANS: No significant abnormality is seen URINARY BLADDER: No significant abnormality is seen. PELVIC ADENOPATHY: None visualized. OSSEOUS STRUCTURES: No significant abnormality is seen. BOWEL: No significant abnormality is seen. IMPRESSION: 1. NO DEFINITE ACUTE PROCESS. 2. MILD HEPATOMEGALY WITH DIFFUSE LOW-ATTENUATION CONSISTENT WITH STEATOSIS.
== END | disposition home or self-care (01) ==
LOC: RADCTMAIN 19:05
PROVIDERS: ATTEND Internal Medicine
DX: R16.0 Hepatomegaly, not elsewhere classified (principal)
CPT/HCPCS: 74176

== ENCOUNTER 2017-08-26 11:16 | Observation (INO) | payer OTHER ==
--- NOTE | 2017-08-26 11:33 | NM ---
EXAMINATION TYPE: NM hepatobiliary wo EF DATE OF EXAM: 08/26/2017 COMPARISON: CT abdomen pelvis 08/09/2017 HISTORY: Right upper quadrant pain TECHNIQUE: After the intravenous administration of 5.05 mCi Tc 99m Mebrofenin hepatobiliary scintigra phy is performed. Immediate images post injection. FINDINGS: Prompt homogenous uptake of the radiopharmaceutical noted within the liver. Gallbladder is thought to be diminutive, focus of uptake at the level of the izabel could possibly represent the gallbladder ho wever does not fill over time with certainty is not seen on delayed imaging. IMPRESSION: Visualization of the gallbladder not seen definitively. Correlate for cholecystitis.
[2017-08-26] MEDS ORDERED: HYDROmorphone 0.5 MG/0.5 ML SYRINGE IVP STA (12:19)
[2017-08-26] MEDS ORDERED: ONDANSETRON 4 MG/2 ML VIAL IVP STA (12:19)
[2017-08-26] MEDS ORDERED: SODIUM CHLORIDE 0.9% 500 ML IV STA (12:19)
--- NOTE | 2017-08-26 12:24 | ED ---
General Adult HPI - General Chief complaint: Abdominal Pain Time Seen by Provider: 08/26/17 11:40 Source: patient, RN notes reviewed Mode of arrival: wheelchair Limitations: no limitations - History of Present Illness Initial comments: This is a 49-year-old female presents emergency department stating that she has been complaining of some right upper quadrant abdominal pain for a few weeks. Patient states the pain is gotten slightly worse. Patient states she's also had some yellow diarrhea. Patient states her doctor didn't CAT scan and ordered a HIDA scan today. Patient went to get the HIDA scan and she completed up but then the pain became considerably worse in the right upper quadrant. The ultrasound did show possible cholecystitis. Patient denies any fever chills. Patient states she has mildly nauseated. Patient denies any lower abdominal pain. Patient denies any chest pain difficulty breathing or shortness of breath. Patient denies any recent fever chills. - Related Data Home Medications Medication Instructions Recorded Confirmed Estrogens, Conjugated [Premarin] 0.625 mg PO DAILY 05/20/15 08/26/17 Levothyroxine Sodium [Synthroid] 25 mcg PO DAILY 05/20/15 08/26/17 Ranitidine HCl [Zantac] 150 mg PO BID 05/20/15 08/26/17 Lisinopril 40 mg PO DAILY 08/26/17 08/26/17 amLODIPine [Norvasc] 10 mg PO DAILY 08/26/17 08/26/17 hydrOXYzine PAMOATE [Vistaril] 25 mg PO DAILY PRN 08/26/17 08/26/17 traZODone HCL [Desyrel] 100 mg PO HS 08/26/17 08/26/17 Allergies Allergy/AdvReac Type Severity Reaction Status Date / Time cefaclor [From Ceclor] Allergy Unknown Verified 08/26/17 11:20 prochlorperazine Allergy Unknown Verified 08/26/17 11:20 [From Compazine] prochlorperazine edisylate Allergy Unknown Verified 08/26/17 11:20 [From Compazine] prochlorperazine maleate Allergy Unknown Verified 08/26/17 11:20 [From Compazine] tetracycline Allergy Nausea & Verified 08/26/17 11:20 Vomiting erythromycin base AdvReac Rash/Hives Verified 07/02/18 11:20 levofloxacin [From Levaquin] AdvReac Rash/Hives Verified 08/26/17 11:20 Review of Systems ROS Statement: Those systems with pertinent positive or pertinent negative responses have been documented in the HPI. ROS Other: All systems not noted in ROS Statement are negative. Past Medical History Past Medical History: COPD, Hypertension, Thyroid Disorder Additional Past Medical History / Comment(s): back pain History of Any Multi-Drug Resistant Organisms: None Reported Past Surgical History: Appendectomy, Hernia Repair, Hysterectomy, Tonsillectomy Additional Past Surgical History / Comment(s): hernia repair, (R) carpel tunnel surgery, (L) breast lumpectomy Past Psychological History: Depression Smoking Status: Former smoker Past Alcohol Use History: None Reported Past Drug Use History: Marijuana, Prescription Drug Abuse General Exam - General Exam Comments Initial Comments: GENERAL: Patient is well-developed and well-nourished. Patient is nontoxic and well- hydrated and is in mild distress. ENT: Neck is soft and supple. No significant lymphadenopathy is noted. Oropharynx is clear. Moist mucous membranes. Neck has full range of motion without eliciting any pain. EYES: The sclera were anicteric and conjunctiva were pink and moist. Extraocular movements were intact and pupils were equal round and reactive to light. Eyelids were unremarkable. PULMONARY: Unlabored respirations. Good breath sounds bilaterally. No audible rales rhonchi or wheezing was noted. CARDIOVASCULAR: There is a regular rate and rhythm without any murmurs gallops or rubs. ABDOMEN: Right upper quadrant tenderness. No palpable organomegaly was noted. There is no palpable pulsatile mass. SKIN: Skin is clear with no lesions or rashes and otherwise unremarkable. NEUROLOGIC: Patient is alert and oriented x3. Cranial nerves II through XII are grossly intact. Motor and sensory are also intact. Normal speech, volume and content. Symmetrical smile. MUSCULOSKELETAL: Normal extremities with adequate strength and full range of motion. No lower extremity swelling or edema. No calf tenderness. LYMPHATICS: No significant lymphadenopathy is noted PSYCHIATRIC: Normal psychiatric evaluation. Normal interpersonal interactions appears functionally intact in deals appropriately with others. No signs of depression. No signs of anxiety. Limitations: no limitations Course Vital Signs 08/26/17 08/26/17 11:18 12:14 Temperature 97.9 F 97.9 F Pulse Rate 69 Respiratory 20 16 Rate Blood Pressure 156/98 137/99 O2 Sat by Pulse 98 Oximetry Medical Decision Making - Medical Decision Making Ultrasound showed no acute abnormality. I spoke with Dr. Diaz he agreed to admit the patient - Lab Data Result diagrams: 08/26/17 12:05 08/26/17 12:05 Lab Results 08/26/17 08/26/17 08/26/17 Range/Units 12:05 12:05 12:35 WBC 7.6 (3.8-10.6) k/uL RBC 4.49 (3.80-5.40) m/uL Hgb 13.8 (11.4-16.0) gm/dL Hct 40.0 (34.0-46.0) % MCV 89.0 (80.0-100.0) fL MCH 30.8 (25.0-35.0) pg MCHC 34.6 (31.0-37.0) g/dL RDW 13.0 (11.5-15.5) % Plt Count 300 (150-450) k/uL Neutrophils % 46 % Lymphocytes % 43 % Monocytes % 6 % Eosinophils % 2 % Basophils % 1 % Neutrophils # 3.5 (1.3-7.7) k/uL Lymphocytes # 3.3 (1.0-4.8) k/uL Monocytes # 0.5 (0-1.0) k/uL Eosinophils # 0.2 (0-0.7) k/uL Basophils # 0.1 (0-0.2) k/uL Sodium 139 (137-145) mmol/L Potassium 4.9 (3.5-5.1) mmol/L Chloride 104 (98-107) mmol/L Carbon Dioxide 25 (22-30) mmol/L Anion Gap 10 mmol/L BUN 20 H (7-17) mg/dL Creatinine 0.70 (0.52-1.04) mg/dL Est GFR (CKD-EPI)AfAm >90 (>60 ml/min/1.73 sqM) Est GFR (CKD-EPI)NonAf >90 (>60 ml/min/1.73 sqM) Glucose 149 H (74-99) mg/dL Calcium 9.3 (8.4-10.2) mg/dL Total Bilirubin 0.4 (0.2-1.3) mg/dL AST 22 (14-36) U/L ALT 31 (9-52) U/L Alkaline Phosphatase 68 (38-126) U/L Total Protein 6.6 (6.3-8.2) g/dL Albumin 4.1 (3.5-5.0) g/dL Amylase 45 (30-110) U/L Lipase 71 (23-300) U/L Urine Color Yellow Urine Appearance Clear (Clear) Urine pH 5.5 (5.0-8.0) Ur Specific Juda 1.021 (1.001-1.035) Urine Protein Negative (Negative) Urine Glucose (UA) Negative (Negative) Urine Ketones Negative (Negative) Urine Blood Negative (Negative) Urine Nitrite Negative (Negative) Urine Bilirubin Negative (Negative) Urine Urobilinogen <2.0 (<2.0) mg/dL Ur Leukocyte Esterase Negative (Negative) Disposition Clinical Impression: Cholecystitis Disposition: ADMITTED IP TO THIS [facility] Referrals: Deena Figueroa MD [Primary Care Provider] - 1-2 days Time of Disposition: 14:15
[2017-08-26 12:34] LABS: Basophils # (A) 0.1 k/uL (0-0.2); Basophils % (A) 1 %; Eosinophils # (A) 0.2 k/uL (0-0.7); Eosinophils % (A) 2 %; HGB 13.8 gm/dL (11.4-16.0); Lymphocytes # (A) 3.3 k/uL (1.0-4.8); Lymphocytes % (A) 43 %; MCH 30.8 pg (25.0-35.0); MCHC 34.6 g/dL (31.0-37.0); Mean Platelet Volume 7.5; Monocytes # (A) 0.5 k/uL (0-1.0); Monocytes % (A) 6 %; Neutrophils # (A) 3.5 k/uL (1.3-7.7); Neutrophils % (A) 46 %; Platelet Count 300 k/uL (150-450); RBC 4.49 m/uL (3.80-5.40); WBC 7.6 k/uL (3.8-10.6)
[2017-08-26 12:44] LABS: ALT 31 U/L (9-52); AST 22 U/L (14-36); Albumin 4.1 g/dL (3.5-5.0); Alkaline Phosphatase 68 U/L (38-126); Amylase 45 U/L (30-110); Anion Gap 10 mmol/L; Blood Urea Nitrogen 20 mg/dL (7-17); Calcium 9.3 mg/dL (8.4-10.2); Carbon Dioxide 25 mmol/L (22-30); Chloride 104 mmol/L (98-107); Glucose 149 mg/dL (74-99); Lipase 71 U/L (23-300); Potassium 4.9 mmol/L (3.5-5.1); Sodium 139 mmol/L (137-145); Total Bilirubin 0.4 mg/dL (0.2-1.3); Total Protein 6.6 g/dL (6.3-8.2)
[2017-08-26 12:53] LABS: Appearance,Urine Clear (Clear); Bilirubin,Urine Negative (Negative); Blood,Urine Negative (Negative); Color,Urine Yellow; Glucose,Urine (UA) Negative (Negative); Ketones,Urine Negative (Negative); Leukocyte Esterase,Urine Negative (Negative); Nitrite,Urine Negative (Negative); PH, Urine 5.5 (5.0-8.0); Protein,Urine Negative (Negative); Specific Gravity,Urine 1.021 (1.001-1.035); Urobilinogen,Urine <2.0 mg/dL (<2.0)
--- NOTE | 2017-08-26 13:19 | US ---
EXAMINATION TYPE: US gallbladder DATE OF EXAM: 08/26/2017 COMPARISON: CT dated 08/09/2017 & NM HIDA scan same date 08/26/2017 CLINICAL HISTORY: Pain. Intermittent RUQ pain and N/V/D x 1 month, patient here today as out patient for NM scan and started having severe RUQ pain and was taken to the ER. EXAM MEASUREMENTS: Gallbladder Wall: 0.2 cm CBD: 0.4 cm Right Kidney: 9.6 x 4.6 x 5.3 cm Pancreas: visualized portions wnl, tail obscured by overlying midline bowel gas Liver: enlarged, heterogeneous without any definite lesion seen, increased echogenicity, attenuating Gallbladder: cholelithiasis, no wall thickening or pericholecystic fluid seen Evidence for sonographic Salinas's sign: yes CBD: visualized portions wnl, limited by overlying bowel gas Right Kidney: wnl There is no ascites. IMPRESSION: Hepatic steatosis, hepatomegaly, cholelithiasis, limited exam, positive sonographic Thomas y's sign
[2017-08-26] MEDS ORDERED: SODIUM CHLORIDE 0.9% 1,000 ML IV ONE ×2 (14:16→18:25)
[2017-08-26] MEDS ORDERED: HEPARIN SODIUM,PORCINE 5,000 UNIT/ML 1 ML VIAL SQ STA (18:24)
[2017-08-26] MEDS ORDERED: CLINDAMYCIN 900 MG in DEXTROSE 5% IN WATER 50 ML IVPB STA ×2 (18:24)
[2017-08-26] MEDS ORDERED: MIDAZOLAM 2 MG/2 ML VIAL ONE (18:25)
[2017-08-26] MEDS ORDERED: KETOROLAC 30 MG/ML 1 ML VIAL ONE (18:25)
[2017-08-26] MEDS ORDERED: NEOSTIGMINE 1 MG/ML 10 ML VIAL ONE (18:25)
[2017-08-26] MEDS ORDERED: fentaNYL (PF) 50 MCG/ML 2 ML AMP ONE (18:25)
[2017-08-26] MEDS ORDERED: PROPOFOL 10 MG/ML 20 ML VIAL IV ONE (18:25)
[2017-08-26] MEDS ORDERED: GLYCOPYRROLATE 0.2 MG/ML 2 ML VIAL ONE (18:25)
[2017-08-26] MEDS ORDERED: ONDANSETRON 4 MG/2 ML VIAL ONE (18:25)
[2017-08-26] MEDS ORDERED: LIDOCAINE 1% INJ 10MG/ML (20 ML MDV) ONE (18:25)
[2017-08-26] MEDS ORDERED: ROCURONIUM BROMIDE 10 MG/ML 10 ML VIAL IV ONE (18:25)
[2017-08-26] MEDS ORDERED: DEXAMETHASONE SOD PHOS (MDV) 100 MG/10 ML VIAL ONE (18:25)
[2017-08-26] MEDS ORDERED: SUCCINYLCHOLINE CHLORIDE 100 MG/5 ML SYR IV ONE (18:25)
--- NOTE | 2017-08-26 18:27 | P.GSHP ---
History of Present Illness H&P Date: 08/26/17 Chief Complaint: Acute calculus cholecystitis 57-year-old female for the last 1 month has had complaints of right upper quadrant pain. Some radiation to the chest. Associated with intermittent loose bilious stools. No fevers. Pain radiates to the back as well. Had an outpatient HIDA scan ordered for today. HIDA scan showed nonvisualization of the gallbladder. Ultrasound then was performed which showed gallstones without gallbladder wall thickening but a positive Sal[place] sign. Today's labs show normal liver enzyme elevation. Patient had a CAT scan 3 weeks ago which showed mild fatty liver. - Review of Systems Comment: The patient denies any acute changes in vision or hearing, no dysphagia or odynophagia, no chest pain or shortness of breath, no dysuria or hematuria, no headache, no runny nose, no rectal bleeding or melena, no unexplained weight loss Past Medical History Past Medical History: COPD, Hypertension, Thyroid Disorder Additional Past Medical History / Comment(s): back pain History of Any Multi-Drug Resistant Organisms: None Reported Past Surgical History: Appendectomy, Hernia Repair, Hysterectomy, Tonsillectomy Additional Past Surgical History / Comment(s): hernia repair, (R) carpel tunnel surgery, (L) breast lumpectomy Past Anesthesia/Blood Transfusion Reactions: No Reported Reaction Past Psychological History: Depression Smoking Status: Former smoker Past Alcohol Use History: None Reported Past Drug Use History: Marijuana, Prescription Drug Abuse Medications and Allergies Home Medications Medication Instructions Recorded Confirmed Type Estrogens, Conjugated [Premarin] 0.625 mg PO DAILY 05/20/15 08/26/17 History Levothyroxine Sodium [Synthroid] 25 mcg PO DAILY 05/20/15 08/26/17 History Ranitidine HCl [Zantac] 150 mg PO BID 05/20/15 08/26/17 History Lisinopril 40 mg PO DAILY 08/26/17 08/26/17 History amLODIPine [Norvasc] 10 mg PO DAILY 08/26/17 08/26/17 History hydrOXYzine PAMOATE [Vistaril] 25 mg PO DAILY PRN 08/26/17 08/26/17 History traZODone HCL [Desyrel] 100 mg PO HS 08/26/17 08/26/17 History Allergies Allergy/AdvReac Type Severity Reaction Status Date / Time cefaclor [From Ceclor] Allergy Unknown Verified 08/26/17 11:20 prochlorperazine Allergy Unknown Verified 08/26/17 11:20 [From Compazine] prochlorperazine edisylate Allergy Unknown Verified 08/26/17 11:20 [From Compazine] prochlorperazine maleate Allergy Unknown Verified 08/26/17 11:20 [From Compazine] tetracycline Allergy Nausea & Verified 08/26/17 11:20 Vomiting erythromycin base AdvReac Rash/Hives Verified 08/26/17 11:20 levofloxacin [From Levaquin] AdvReac Rash/Hives Verified 08/26/17 11:20 Surgical - Exam Vital Signs Temp Pulse Resp BP Pulse Ox 97.9 F 69 20 156/98 98 08/26/17 11:18 08/26/17 11:18 08/26/17 11:18 08/26/17 11:18 08/26/17 11:18 Physical exam: General: Well-developed, well-nourished HEENT: Normocephalic, sclerae nonicteric Abdomen: Right upper quadrant tenderness, upper midline incision from prior hernia repair, nondistended Extremities: No edema Neuro: Alert and oriented Results - Labs 08/26/17 12:05 08/26/17 12:05 Abnormal Lab Results - Last 24 Hours (Table) 08/26/17 Range/Units 12:05 BUN 20 H (7-17) mg/dL Glucose 149 H (74-99) mg/dL Diabetes panel 08/26/17 Range/Units 12:05 Sodium 139 (137-145) mmol/L Potassium 4.9 (3.5-5.1) mmol/L Chloride 104 (98-107) mmol/L Carbon Dioxide 25 (22-30) mmol/L BUN 20 H (7-17) mg/dL Creatinine 0.70 (0.52-1.04) mg/dL Glucose 149 H (74-99) mg/dL Calcium 9.3 (8.4-10.2) mg/dL AST 22 (14-36) U/L ALT 31 (9-52) U/L Alkaline Phosphatase 68 (38-126) U/L Total Protein 6.6 (6.3-8.2) g/dL Albumin 4.1 (3.5-5.0) g/dL Calcium panel 08/26/17 Range/Units 12:05 Calcium 9.3 (8.4-10.2) mg/dL Albumin 4.1 (3.5-5.0) g/dL Pituitary panel 08/26/17 Range/Units 12:05 Sodium 139 (137-145) mmol/L Potassium 4.9 (3.5-5.1) mmol/L Chloride 104 (98-107) mmol/L Carbon Dioxide 25 (22-30) mmol/L BUN 20 H (7-17) mg/dL Creatinine 0.70 (0.52-1.04) mg/dL Glucose 149 H (74-99) mg/dL Calcium 9.3 (8.4-10.2) mg/dL Adrenal panel 08/26/17 Range/Units 12:05 Sodium 139 (137-145) mmol/L Potassium 4.9 (3.5-5.1) mmol/L Chloride 104 (98-107) mmol/L Carbon Dioxide 25 (22-30) mmol/L BUN 20 H (7-17) mg/dL Creatinine 0.70 (0.52-1.04) mg/dL Glucose 149 H (74-99) mg/dL Calcium 9.3 (8.4-10.2) mg/dL Total Bilirubin 0.4 (0.2-1.3) mg/dL AST 22 (14-36) U/L ALT 31 (9-52) U/L Alkaline Phosphatase 68 (38-126) U/L Total Protein 6.6 (6.3-8.2) g/dL Albumin 4.1 (3.5-5.0) g/dL Assessment and Plan (1) Acute cholecystitis due to biliary calculus Narrative/Plan: Will proceed with laparoscopic cholecystectomy at this time. Risks of bleeding, infection, bile leak, bile duct injury, retained common bile duct stone, trocar injury, conversion to an open procedure, potential findings of other etiologies for her pain requiring additional procedures, hernia, anesthesia related complications were reviewed. The patient understands and wishes to proceed. Current Visit: Yes Status: Acute Code(s): K80.00 - CALCULUS OF GALLBLADDER W ACUTE CHOLECYST W/O OBSTRUCTION SNOMED Code(s): 51213008864432
[2017-08-26] MEDS ORDERED: LACTATED RINGERS 1,000 ML IV ONE (19:07)
[2017-08-26] MEDS ORDERED: ONDANSETRON 4 MG/2 ML VIAL IVP PRN (19:27)
[2017-08-26] MEDS ORDERED: NALOXONE 0.4 MG/ML 1 ML VIAL IV PRN (19:27)
--- NOTE | 2017-08-26 19:31 | P.OP ---
Date of Procedure: 08/26/17 Procedure(s) Performed: PREOPERATIVE DIAGNOSIS: Acute cholecystitis POSTOPERATIVE DIAGNOSIS: Same PROCEDURE: Laparoscopic cholecystectomy SURGEON: Kaye EBL: Minimal see anesthesia record ANESTHESIA: Gen. COMPLICATIONS: None OPERATIVE PROCEDURE: The patient was brought and placed on the operating room table in the supine position. The patient was placed under general anesthesia at that time. The abdomen was prepped and draped in the usual sterile fashion. A small vertical infraumbilical incision was made. The fascia was grasped with the Osmar forceps. The fascia was retracted anteriorly. The Veress needle was advanced into the peritoneal cavity. The saline drop test was normal. Insufflation took place up to 15 mmHg. A 5 mm optical trocar was advanced and the peritoneal cavity. Patient had a veil of adhesions in the supraumbilical location at the site of previous hernia repair. The initial Veress needle and 5 mm trocar was then fully to 7 m beneath these adhesions and did not create any iatrogenic injuries. 2 additional 5 mm trochars were placed in the right upper quadrant under direct visualization. A 12 mm trocar was advanced into the epigastric incision site. The gallbladder was acutely inflamed without ischemic changes. There was no hydrops seen. The gallbladder was retracted superiorly and laterally. The peritoneum overlying the infundibulum was bluntly dissected. The patient's cystic duct was visualized. The junction between the cystic duct common and hepatic duct was identified. The cystic duct was then divided after placement of 3 12 mm clips on the patient 's side and one on the specimen side. The cystic artery was identified and clipped as well. A small vessel was seen along the gallbladder fossa and clipped as well. The gallbladder was then removed from the liver bed using electrocautery. The gallbladder was then removed from the epigastric trocar site with an Endo Catch bag. The gallbladder fossa was irrigated with saline. There was no evidence of any bleeding or biliary drainage seen. The trochars were then removed. The fascia at the 12 millimeter site was closed using a Artie-Tay 0 Vicryl stitch. The skin at all 4 sites was closed using a 4- 0 Monocryl stitch. At the end of this procedure the sponge and needle counts were correct. DISPOSITION: Stable to the recovery room
[2017-08-26] MEDS: MEPERIDINE 50 MG/ML SYRINGE IVP ONE ×2 (19:39→20:16)
[2017-08-26] MEDS: HYDROmorphone 0.5 MG/0.5 ML SYRINGE IVP PRN (21:00)
[2017-08-26] MEDS: D5-0.45% NACL WITH KCL 20MEQ/L 1,000 ML IV SCH (21:04)
[2017-08-26] MEDS: HYDROcodone/APAP 5-325MG 1 EACH TAB PO PRN (23:02)
[2017-08-27] MEDS: HYDROmorphone 0.5 MG/0.5 ML SYRINGE IVP PRN ×4 (00:04→09:48)
[2017-08-27] MEDS: HEPARIN SODIUM,PORCINE 5,000 UNIT/ML 1 ML VIAL SQ SCH ×2 (00:04→09:12)
[2017-08-27] MEDS: HYDROcodone/APAP 5-325MG 1 EACH TAB PO PRN ×2 (03:07→12:41)
[2017-08-27] MEDS: D5-0.45% NACL WITH KCL 20MEQ/L 1,000 ML IV SCH ×2 (04:57→13:08)
[2017-08-27 05:56] VITALS: BP 132/78; PULSE 68; RESP 17; TEMP 98.9
--- NOTE | 2017-08-27 12:11 | P.PN ---
<Shonna Meza - Last Filed: 08/27/17 12:05> Subjective Progress Note Date: 08/27/17 57-year-old female seen and examined. Patient's been up ambulating in the hallway. States passing gas. Tolerating diet no nausea no vomiting. States pain medication effective for pain control. Surgical dressing sites dressings dry. Abdomen Nondistended soft No labs pending afebrile temp is 98.9 postop August 26 laparoscopic cholecystectomy for acute cholecystitis Objective - Vital Signs Vital signs: Vital Signs Temp 98.9 F 08/27/17 05:56 Pulse 68 08/27/17 05:56 Resp 17 08/27/17 05:56 BP 132/78 08/27/17 05:56 Pulse Ox 93 L 08/27/17 05:56 Intake & Output 08/26/17 08/27/17 08/27/17 18:59 06:59 18:59 Intake Total 756 550 400 Output Total 5 Balance 751 550 400 Weight 84.368 kg Intake: IV 756 550 Oral 400 Output: Estimated Blood Loss 5 Other: # Voids 2 - Exam Physical exam 57-year-old female alert oriented 3 in no acute distress Lungs adequate air movement bilaterally on room air Heart S1-S2 audible regular Abdomen surgical dressing sites dry soft not distended nontender bowel sounds present no nausea no vomiting tolerating diet of clear liquids Extremities no edema - Labs CBC & Chem 7: 08/26/17 12:05 08/26/17 12:05 Labs: Abnormal Lab Results - Last 24 Hours (Table) 08/26/17 Range/Units 12:05 BUN 20 H (7-17) mg/dL Glucose 149 H (74-99) mg/dL Assessment and Plan Assessment: Impression Present on admission right upper quadrant abdominal pain suspect due to acute cholecystitis Ultrasound of the abdomen showed gallstones without gallbladder wall thickening or positive Sal[place] sign History of prescription drug abuse Plan Advance diet as tolerated Continue postop surgical care Pain control Increase activity Anticipate discharge today with follow-up office visit next week The above impression and plan of care have been discussed and directed by signing physician. Shonna Meza nurse practitioner acting as scribe for signing physician. <Rui Restrepo - Last Filed: 08/27/17 17:42> Objective - Vital Signs Vital signs: Vital Signs Temp 98.9 F 08/27/17 05:56 Pulse 68 08/27/17 05:56 Resp 17 08/27/17 05:56 BP 132/78 08/27/17 05:56 Pulse Ox 93 L 08/27/17 05:56 Intake & Output 08/26/17 08/27/17 08/27/17 18:59 06:59 18:59 Intake Total 756 550 400 Output Total 5 Balance 751 550 400 Weight 84.368 kg Intake: IV 756 550 Oral 400 Output: Estimated Blood Loss 5 Other: # Voids 2 2 - Labs CBC & Chem 7: 08/26/17 12:05 08/26/17 12:05 Assessment and Plan Assessment: as above. see discharge summary. (1) Acute cholecystitis due to biliary calculus Status: Acute Code(s): K80.00 - CALCULUS OF GALLBLADDER W ACUTE CHOLECYST W/O OBSTRUCTION SNOMED Code(s): 98530558025356
--- NOTE | 2017-08-27 13:33 | P.DS ---
<Shonna Meza - Last Filed: 08/27/17 13:22> Providers Date of admission: 08/26/17 14:16 Expected date of discharge: 08/27/17 Attending physician: Rui Restrepo Primary care physician: [facility] Course: 57-year-old female who presented on the day of admission to the emergency room to be evaluated for right upper quadrant abdominal pain. Patient stated it started about a month ago radiated to the back. Patient reportedly had an outpatient HIDA scan ordered on August 26. HIDA scan showed nonvisualization of the gallbladder. Ultrasound was performed showed gallstones without gallbladder wall thickening but a positive Salinas sign. There were normal liver and enzymes. Had a CAT scan 3 weeks ago did show mild fatty liver disease. Patient underwent on August 26 laparoscopic cholecystectomy for acute cholecystitis. On the day of discharge surgical dressing sites were dry. Patient was ambulatory on the unit. Passing gas no stool and tolerating a diet pain medication effective for pain control was felt appropriate to be discharged home Impression Present on admission right upper quadrant abdominal pain suspect due to acute cholecystitis Ultrasound of the abdomen showed gallstones without gallbladder wall thickening or positive Sal[place] sign History of prescription drug abuse the above impression and plan of care have been discussed and directed by signing physician. Shonna Meza nurse practitioner acting as scribe for signing physician. Plan - Discharge Summary New Discharge Prescriptions: New HYDROcodone/APAP 5-325MG [[place] 5-325] 1 each PO Q4HR PRN #15 tab PRN Reason: Mild Pain Acetaminophen Tab [Tylenol Tab] 325 mg PO Q6H PRN #20 tablet PRN Reason: Mild Discomfort Continue Ranitidine HCl [Zantac] 150 mg PO BID Levothyroxine Sodium [Synthroid] 25 mcg PO DAILY Estrogens, Conjugated [Premarin] 0.625 mg PO DAILY hydrOXYzine PAMOATE [Vistaril] 25 mg PO DAILY PRN PRN Reason: Agitation Or Acute Anxiety traZODone HCL [Desyrel] 100 mg PO HS amLODIPine [Norvasc] 10 mg PO DAILY Lisinopril 40 mg PO DAILY Discharge Medication List Estrogens, Conjugated [Premarin] 0.625 mg PO DAILY 05/20/15 [History] Levothyroxine Sodium [Synthroid] 25 mcg PO DAILY 05/20/15 [History] Ranitidine HCl [Zantac] 150 mg PO BID 05/20/15 [History] Lisinopril 40 mg PO DAILY 08/26/17 [History] amLODIPine [Norvasc] 10 mg PO DAILY 08/26/17 [History] hydrOXYzine PAMOATE [Vistaril] 25 mg PO DAILY PRN 08/26/17 [History] traZODone HCL [Desyrel] 100 mg PO HS 08/26/17 [History] Acetaminophen Tab [Tylenol Tab] 325 mg PO Q6H PRN #20 tablet 08/27/17 [Rx] HYDROcodone/APAP 5-325MG [[place] 5-325] 1 each PO Q4HR PRN #15 tab 08/27/17 [Rx] Follow up Appointment(s)/Referral(s): Rui Restrepo MD [Medical Doctor] - 09/18/17 1:15 pm Deena Figueroa MD [Primary Care Provider] - 09/05/17 1:40 pm Patient Instructions/Handouts: *Surgery [facility] - Laparoscopic Cholecystectomy Discharge Instructions Activity/Diet/Wound Care/Special Instructions: No tub bath for six weeks. Shower daily. No lifting over 10 pounds for the next 6 weeks. May use ice packs to surgical site. No driving while taking narcotic for pain. Do not remove surgical dressings will be removed at the surgical office visit low-fat diet as tolerated Discharge Disposition: HOME SELF-CARE <Rui Restrepo - Last Filed: 08/27/17 17:43> - Discharge Diagnosis(es) (1) Acute cholecystitis due to biliary calculus Status: Acute Hospital Course: as above. patient doing well today. was discharged before my arrival. follow up in office.
== END 2017-08-27 14:53 | disposition home or self-care (01) ==
LOC: EC 11:16 → 4MS4W 14:16 → INTOOBSV 14:16 → UNDODISIN 08-27 14:53
PROVIDERS: ADMIT Surgery; ATTEND Surgery
PROC: 0FT44ZZ Resection of Gallbladder, Percutaneous Endoscopic Approach (ICD-10-PCS; principal; 2017-08-26 17:00)
DX: K80.00 Calculus of gallbladder with acute cholecystitis without obstruction (principal); K76.0 Fatty (change of) liver, not elsewhere classified; E07.9 Disorder of thyroid, unspecified; J44.9 Chronic obstructive pulmonary disease, unspecified; I10 Essential (primary) hypertension; F32.9 Major depressive disorder, single episode, unspecified; F41.9 Anxiety disorder, unspecified; Z79.890 Hormone replacement therapy; Z79.899 Other long term (current) drug therapy; Z88.1 Allergy status to other antibiotic agents; Z88.8 Allergy status to other drugs, medicaments and biological substances; Z87.898 Personal history of other specified conditions; Z87.891 Personal history of nicotine dependence; Z90.710 Acquired absence of both cervix and uterus; Z90.89 Acquired absence of other organs
CPT/HCPCS: 96361; 96374; 96375; 99285; 36415; 88304; 80053; 82150; 83690; 85025; 81003; 76705; 78226; 47562; G0378 ×2; A9537; J2250; J1644; J2710; J2175; J2405; J2001; J3010; J1885; J1100; J0330; J2704; J1170 ×2

== ENCOUNTER → 2017-09-16 | Outpatient (CLI) | payer OTHER ==
--- NOTE | 2017-09-16 17:43 | XR ---
EXAMINATION TYPE: XR cervical spine comp DATE OF EXAM: 09/16/2017 COMPARISON: NONE HISTORY: Neck pain TECHNIQUE: 5 views FINDINGS: There is some straightening of the vertebra. Posterior elements are intact. There is spurri ng of the endplates at C5-6 C6-7 with disc space narrowing. Atlantoaxial facet joint is normal. There are no cervical ribs. IMPRESSION: Spondylotic changes in the lower cervical spine. No fracture.
== END | disposition home or self-care (01) ==
LOC: RADXRMAIN 17:11
PROVIDERS: ATTEND Internal Medicine
DX: M47.812 Spondylosis without myelopathy or radiculopathy, cervical region (principal)
CPT/HCPCS: 72050

== ENCOUNTER → 2017-09-30 | Outpatient (CLI) | payer OTHER ==
--- NOTE | 2017-10-01 08:33 | CT ---
EXAMINATION TYPE: CT soft tissue neck wo con DATE OF EXAM: 09/30/2017 HISTORY: Chronic neck pain COMPARISON: NONE CT DLP: 628.5 mGycm. Automated Exposure Control for Dose Reduction was Utilized. TECHNIQUE: CT scan of the neck is performed without contrast, axial images are obtained, coronal and sagittal reformatted images are reviewed. FINDINGS: Airway: No gross abnormality seen. Vallecula, piriform sinuses, hypopharynx, supraglottic airway, messi pharynx and nasopharynx are patent. Fossa of Rosenmuller and torus tubarius are unremarkable. Palatin e tonsils are symmetric and nonobstructive. Parotid/submandibular glands: Multiple subcentimeter bilateral hyperdense masses within the superfici al lobes of the parotid glands bilaterally are seen and could represent intraparotid lymph nodes, how ever ultrasound could assess for a fatty hilum. Submandibular glands are symmetric and unremarkable. Carotid/Vascular Structures: Limited without intravenous contrast. There is a conventional three-vess el branch pattern of the aortic arch. Only minimal calcific atheromatous changes are seen of the aort ic arch. No calcific atheromatous changes of the internal carotid arteries and their visualized porti ons, common carotid arteries or carotid bulbs. Osseous Structures: There is straightening of usual cervical lordosis. Multilevel uncovertebral hyper trophy and facet arthropathy as well as disc osteophyte complexes are seen. At C4-C5 there is a poste rior disc osteophyte complex, uncovertebral hypertrophy and facet arthropathy that mildly narrow the spinal canal and left neural foramen. At C5-C6 there is uncovertebral hypertrophy and facet arthropat hy as well as a small broad-based disc bulge that mildly narrows the bilateral neural foramen and spi nal canal. At C6-C7 there is a broad-based disc bulge and uncovertebral hypertrophy that mildly narro w the spinal canal and bilateral neural foramen. Other: There is a solitary nonenlarged 6 mm short axis left supraclavicular lymph node noted. Thyroid gland appears symmetric. Lung apices are well aerated. IMPRESSION: 1. Multilevel moderate degenerative disc disease of the cervical spine and straightening of the cervi dinesh lordosis that may relate to muscular spasm. Degenerative disc disease results in mild spinal krista l stenosis from C4 through C7 and multilevel neural foraminal narrowing. Degree of neural foraminal n arrowing and evaluation for focal disc herniation could be better assessed with MRI. 2. Bilateral subcentimeter parotid gland lesions that may represent intraparotid lymph nodes. Ultraso und could assess for an internal fatty hilum or aggressive features.
== END ==
LOC: RADCTMAIN 15:12
PROVIDERS: ATTEND Internal Medicine
DX: M50.30 Other cervical disc degeneration, unspecified cervical region (principal); M48.02 Spinal stenosis, cervical region; K11.9 Disease of salivary gland, unspecified
CPT/HCPCS: 70490

== ENCOUNTER 2018-07-05 19:01 | Emergency (ER) | payer OTHER ==
[2018-07-05] MEDS ORDERED: ONDANSETRON 4 MG/2 ML VIAL IVP STA (20:00)
[2018-07-05] MEDS ORDERED: SODIUM CHLORIDE 0.9% 1,000 ML IV STA (20:00)
[2018-07-05] MEDS ORDERED: KETOROLAC 60 MG/2 ML VIAL IM STA (20:01)
[2018-07-05] MEDS ORDERED: KETOROLAC 30 MG/ML 1 ML VIAL IVP STA (20:05)
[2018-07-05 20:28] LABS: Basophils # (A) 0.1 k/uL (0-0.2); Basophils % (A) 1 %; Eosinophils # (A) 0.1 k/uL (0-0.7); Eosinophils % (A) 1 %; HCT 43.6 % (34.0-46.0); HGB 15.4 gm/dL (11.4-16.0); Lymphocytes # (A) 3.7 k/uL (1.0-4.8); Lymphocytes % (A) 43 %; MCHC 35.4 g/dL (31.0-37.0); MCV 90.6 fL (80.0-100.0); Mean Platelet Volume 7.9; Monocytes # (A) 0.5 k/uL (0-1.0); Monocytes % (A) 6 %; Neutrophils # (A) 4.1 k/uL (1.3-7.7); Neutrophils % (A) 47 %; Platelet Count 396 k/uL (150-450); RBC 4.81 m/uL (3.80-5.40); RDW 13.4 % (11.5-15.5); WBC 8.6 k/uL (3.8-10.6)
[2018-07-05 20:31] LABS: Appearance,Urine Clear (Clear); Bilirubin,Urine Negative (Negative); Blood,Urine Negative (Negative); Color,Urine Light Yellow; Glucose,Urine (UA) 4+ (Negative); Ketones,Urine 1+ (Negative); Leukocyte Esterase,Urine Negative (Negative); Nitrite,Urine Negative (Negative); Protein,Urine Negative (Negative); Specific Gravity,Urine 1.033 (1.001-1.035); Urobilinogen,Urine <2.0 mg/dL (<2.0)
--- NOTE | 2018-07-05 20:32 | XR ---
EXAMINATION TYPE: XR KUB DATE OF EXAM: 07/05/2018 CLINICAL DATA: 58 year-old female left flank pain, [facility] COMPARISON: None FINDINGS: Lung bases are clear. No evidence for free intraperitoneal air. Cholecystectomy clips. No dilated small bowel or air-fluid levels. Scattered air and stool seen throughout the colon extendi ng distally into the rectum. Mild stool burden. No suspicious calcifications identified. Phlebolith in the left side of the pelvis. Vascular calcific ations in the pelvis. IMPRESSION: No evidence of bowel obstruction or free intraperitoneal air.
[2018-07-05 20:38] LABS: ALT 17 U/L (9-52); AST 33 U/L (14-36); Albumin 4.1 g/dL (3.5-5.0); Alkaline Phosphatase 104 U/L (38-126); Anion Gap 18 mmol/L; Blood Urea Nitrogen 12 mg/dL (7-17); Carbon Dioxide 16 mmol/L (22-30); Chloride 99 mmol/L (98-107); Glucose 301 mg/dL (74-99); Sodium 133 mmol/L (137-145); Total Bilirubin 1.3 mg/dL (0.2-1.3); Total Protein 8.1 g/dL (6.3-8.2)
[2018-07-05 20:42] LABS: Potassium 5.3 mmol/L (3.5-5.1)
[2018-07-05] MEDS ORDERED: MORPHINE SULFATE 4 MG/ML SYRINGE IVP STA (20:56)
[2018-07-05 21:06] VITALS: RESP 16
--- NOTE | 2018-07-05 22:10 | ED ---
Abdominal Pain HPI - General Source: patient Mode of arrival: ambulatory Limitations: no limitations <Liban Cervantes - Last Filed: 07/05/18 23:15> <Lolly Vasquez - Last Filed: 07/06/18 02:22> - General Chief Complaint: Abdominal Pain Stated Complaint: lower left abdominal pain Time Seen by Provider: 07/05/18 19:30 - History of Present Illness Initial Comments: Patient is a 58-year-old female presenting to emergency Department with left lower quadrant pain. Patient states the pain started a few days ago but has been progressively gotten worse and now it is uncomfortable even at rest. Patient states the pain is from her left ovary. Patient states that she had a partial hysterectomy and only her left ovary was not removed. Patient states about 4 years ago she had an ultrasound and it was determined that she had a large cyst and her physician wanted to remove it but the insurance will not cover. Patient reports the pain is very similar to previous pain when the cyst was initially diagnosed. Patient denies taking estrogen. Patient reports nausea vomiting and diarrhea. Patient denies any chest pain, chest tightness, shortness of breath. Patient reports taking Tylenol for pain control. Patient denies any vaginal discharge, hematuria, dysuria, increased frequency or urgency. (Liban Cervantes) - Related Data Home Medications Medication Instructions Recorded Confirmed Estrogens, Conjugated [Premarin] 0.625 mg PO DAILY 05/20/15 08/26/17 Levothyroxine Sodium [Synthroid] 25 mcg PO DAILY 05/20/15 08/26/17 Ranitidine HCl [Zantac] 150 mg PO BID 05/20/15 08/26/17 Lisinopril 40 mg PO DAILY 08/26/17 08/26/17 amLODIPine [Norvasc] 10 mg PO DAILY 08/26/17 08/26/17 hydrOXYzine PAMOATE [Vistaril] 25 mg PO DAILY PRN 08/26/17 08/26/17 traZODone HCL [Desyrel] 100 mg PO HS 08/26/17 08/26/17 Previous Rx's Medication Instructions Recorded Acetaminophen Tab [Tylenol Tab] 325 mg PO Q6H PRN #20 tablet 08/27/17 HYDROcodone/APAP 5-325MG [[place] 1 each PO Q4HR PRN #15 tab 08/27/17 5-325] Dicyclomine [Bentyl] 10 mg PO QID #30 capsule 07/06/18 Ondansetron [Zofran ODT] 4 mg PO Q8HR #12 tab 07/06/18 Allergies Allergy/AdvReac Type Severity Reaction Status Date / Time cefaclor [From Ceclor] Allergy Unknown Verified 07/05/18 19:07 prochlorperazine Allergy Unknown Verified 07/05/18 19:07 [From Compazine] prochlorperazine edisylate Allergy Unknown Verified 07/05/18 19:07 [From Compazine] prochlorperazine maleate Allergy Unknown Verified 07/05/18 19:07 [From Compazine] tetracycline Allergy Nausea & Verified 07/05/18 19:07 Vomiting erythromycin base AdvReac Rash/Hives Verified 07/05/18 19:07 levofloxacin [From Levaquin] AdvReac Rash/Hives Verified 07/05/18 19:07 Review of Systems ROS Other: All systems not noted in ROS Statement are negative. <Liban Cervantes - Last Filed: 07/05/18 23:15> ROS Other: All systems not noted in ROS Statement are negative. <Lolly Vasquez - Last Filed: 07/06/18 02:22> ROS Statement: Those systems with pertinent positive or pertinent negative responses have been documented in the HPI. Past Medical History Past Medical History: COPD, Hypertension, Thyroid Disorder Additional Past Medical History / Comment(s): back pain History of Any Multi-Drug Resistant Organisms: None Reported Past Surgical History: Appendectomy, Cholecystectomy, Hernia Repair, Hysterectomy, Tonsillectomy Additional Past Surgical History / Comment(s): hernia repair, (R) carpel tunnel surgery, (L) breast lumpectomy Past Anesthesia/Blood Transfusion Reactions: No Reported Reaction Past Psychological History: Depression Smoking Status: Former smoker Past Alcohol Use History: None Reported Past Drug Use History: Marijuana, Prescription Drug Abuse <Liban Cervantes - Last Filed: 07/05/18 23:15> General Exam Limitations: no limitations General appearance: alert, in no apparent distress Head exam: Present: atraumatic, normocephalic, normal inspection Eye exam: Present: normal appearance, PERRL, EOMI Pupils: Present: normal accommodation ENT exam: Present: normal exam Neck exam: Present: normal inspection Respiratory exam: Present: normal lung sounds bilaterally. Absent: respiratory distress Cardiovascular Exam: Present: regular rate, normal rhythm, normal heart sounds GI/Abdominal exam: Present: soft, tenderness (Severe tenderness in the left lower quadrant.), guarding (Left lower quadrant), normal bowel sounds. Absent: rebound Extremities exam: Present: normal inspection Back exam: Present: normal inspection, full ROM (Limited due to pain). Absent: CVA tenderness (R), CVA tenderness (L) Neurological exam: Present: alert, oriented X3 Psychiatric exam: Present: normal affect, normal mood Skin exam: Present: warm, normal color <Liban Cervantes - Last Filed: 07/05/18 23:15> Course Vital Signs 07/05/18 07/05/18 07/06/18 19:04 21:05 01:25 Temperature 98.2 F 98.4 F Pulse Rate 112 H 92 88 Respiratory 18 16 16 Rate Blood Pressure 127/70 150/99 148/97 O2 Sat by Pulse 97 97 97 Oximetry Medical Decision Making - Lab Data Result diagrams: 07/05/18 19:40 07/05/18 19:40 <Liban Cervantes - Last Filed: 07/05/18 23:15> - Lab Data Result diagrams: 07/05/18 19:40 07/05/18 19:40 <Lolly Vasquez - Last Filed: 07/06/18 02:22> - Medical Decision Making Patient is a 58-year-old female presenting to the emergency department with left lower quadrant pain. Patient was given Toradol for the pain without much improvement patient was given 4 mg of IV morphine. Patient was given a liter bolus fluid. KUB was negative. CBC, CMP and UA were collected. UA is unremarkable. ULTRASOUND of the left lower quadrant was unable to locate the left ovary. CT of abdomen and pelvis was ordered. (Liban Cervantes) care was signed out to me by the PA. Patient presented with left lower quadrant abdominal pain, should ultrasound labs and computed tomography scan. When I reevaluated patient she stated that for the past 4 days she's been having nausea, vomiting and diarrhea with cramping pain in her left-sided abdomen. Patient states she just felt like she couldn't take it anymore. I will treat the patient with Bentyl and antiemetics. (Lolly Vasquez) - Lab Data Lab Results 07/05/18 07/05/18 07/05/18 Range/Units 19:40 19:40 20:20 WBC 8.6 (3.8-10.6) k/uL RBC 4.81 (3.80-5.40) m/uL Hgb 15.4 (11.4-16.0) gm/dL Hct 43.6 (34.0-46.0) % MCV 90.6 (80.0-100.0) fL MCH 32.0 (25.0-35.0) pg MCHC 35.4 (31.0-37.0) g/dL RDW 13.4 (11.5-15.5) % Plt Count 396 (150-450) k/uL Neutrophils % 47 % Lymphocytes % 43 % Monocytes % 6 % Eosinophils % 1 % Basophils % 1 % Neutrophils # 4.1 (1.3-7.7) k/uL Lymphocytes # 3.7 (1.0-4.8) k/uL Monocytes # 0.5 (0-1.0) k/uL Eosinophils # 0.1 (0-0.7) k/uL Basophils # 0.1 (0-0.2) k/uL Sodium 133 L (137-145) mmol/L Potassium 5.3 H (3.5-5.1) mmol/L Chloride 99 (98-107) mmol/L Carbon Dioxide 16 L (22-30) mmol/L Anion Gap 18 mmol/L BUN 12 (7-17) mg/dL Creatinine 0.58 (0.52-1.04) mg/dL Est GFR (CKD-EPI)AfAm >90 (>60 ml/min/1.73 sqM) Est GFR (CKD-EPI)NonAf >90 (>60 ml/min/1.73 sqM) Glucose 301 H (74-99) mg/dL Calcium 10.0 (8.4-10.2) mg/dL Total Bilirubin 1.3 (0.2-1.3) mg/dL AST 33 (14-36) U/L ALT 17 (9-52) U/L Alkaline Phosphatase 104 (38-126) U/L Total Protein 8.1 (6.3-8.2) g/dL Albumin 4.1 (3.5-5.0) g/dL Urine Color Light Yellow Urine Appearance Clear (Clear) Urine pH 5.0 (5.0-8.0) Ur Specific [place] 1.033 (1.001-1.035) Urine Protein Negative (Negative) Urine Glucose (UA) 4+ H (Negative) Urine Ketones 1+ H (Negative) Urine Blood Negative (Negative) Urine Nitrite Negative (Negative) Urine Bilirubin Negative (Negative) Urine Urobilinogen <2.0 (<2.0) mg/dL Ur Leukocyte Esterase Negative (Negative) Disposition <Liban Cervantes - Last Filed: 07/05/18 23:15> Is patient prescribed a controlled substance at d/c from ED?: No <Lolly Vasquez - Last Filed: 07/06/18 02:22> Clinical Impression: Abdominal pain, Nausea vomiting and diarrhea Disposition: HOME SELF-CARE Condition: Stable Instructions (If sedation given, give patient instructions): Abdominal Pain (ED) Prescriptions: Dicyclomine [Bentyl] 10 mg PO QID #30 capsule Ondansetron [Zofran ODT] 4 mg PO Q8HR #12 tab Referrals: Deena Figueroa MD [Primary Care Provider] - 1-2 days
--- NOTE | 2018-07-05 22:53 | US ---
EXAM: US Pelvis Complete, Transabdominal US Pelvis, Transvaginal CLINICAL HISTORY: ITS.REASON US Reason: Pain TECHNIQUE: Real-time transabdominal and transvaginal pelvic ultrasound (complete) with image documentation. Transvaginal imaging was used for better evaluation of the endometrium and adnexa. COMPARISON: CT abdomen/pelvis on 08/09/2017 FINDINGS: Uterus: Prior hysterectomy. Right ovary: Reportedly surgically absent. Left ovary: Not visualized on this exam. Other: Trace free fluid in the left adnexa. No adnexal mass. IMPRESSION: Trace fluid in the left adnexa. Prior hysterectomy and right oophorectomy. Left ovary not visualized on this exam.
--- NOTE | 2018-07-05 23:45 | CT ---
EXAM: CT Abdomen and Pelvis With Intravenous Contrast CLINICAL HISTORY: ITS.REASON CT Reason: Pain TECHNIQUE: Axial computed tomography images of the abdomen and pelvis with intravenous contrast. This CT exam was performed using one or more of the following dose reduction techniques: automated exposure control, adjustment of the mA and/or kV according to patient size, and/or use of iterative reconstruction technique. COMPARISON: No relevant prior studies available. FINDINGS: Lung bases: Unremarkable. No mass. No consolidation. ABDOMEN: Liver: Unremarkable. No mass. Gallbladder and bile ducts: No abnormal ductal dilation or stones. Pancreas: Unremarkable. No mass. No ductal dilation. Spleen: Unremarkable. No splenomegaly. Adrenals: Unremarkable. No mass. Kidneys and ureters: Unremarkable. No solid mass. No hydronephrosis. Stomach and bowel: No obstruction. No mucosal thickening. PELVIS: Appendix: No findings to suggest acute appendicitis. Bladder: Unremarkable. No mass. Reproductive: Unremarkable as visualized. ABDOMEN and PELVIS: Intraperitoneal space: Unremarkable. No free air. No significant fluid collection. Bones/joints: No acute fracture. No dislocation. Soft tissues: Unremarkable. Vasculature: No abdominal aortic aneurysm. Lymph nodes: Unremarkable. No enlarged lymph nodes. IMPRESSION: No acute findings.
[2018-07-06] MEDS ORDERED: DICYCLOMINE 10 MG/ML 2 ML AMP IM STA (00:22)
[2018-07-06] MEDS ORDERED: ONDANSETRON 4 MG/2 ML VIAL IVP STA (00:22)
[2018-07-06] MEDS ORDERED: ONDANSETRON 4 MG ODT STARTER PACK 2 TAB BTL PO STA (00:22)
[2018-07-06 01:26] VITALS: BP 148/97; PULSE 88; TEMP 98.4
[2018-07-06] MEDS ORDERED: LORazepam 2 MG/ML INJ IV STA (02:21)
== END 2018-07-06 01:31 | disposition home or self-care (01) ==
LOC: EC 19:01
DX: R10.32 Left lower quadrant pain (principal); R11.2 Nausea with vomiting, unspecified; R19.7 Diarrhea, unspecified; I10 Essential (primary) hypertension; E07.9 Disorder of thyroid, unspecified; F32.9 Major depressive disorder, single episode, unspecified; Z79.890 Hormone replacement therapy; Z79.899 Other long term (current) drug therapy; Z88.1 Allergy status to other antibiotic agents; Z88.8 Allergy status to other drugs, medicaments and biological substances; Z87.891 Personal history of nicotine dependence; Z90.49 Acquired absence of other specified parts of digestive tract; Z90.89 Acquired absence of other organs; Z90.710 Acquired absence of both cervix and uterus
CPT/HCPCS: 36415; 80053; 85025; 81003; 74018; 76830; 74177; 99284; 96374; 96375 ×2; 96376; 96361; 96372; J2270; J0500; J2405 ×2; J1885; S0119; Q9967

== ENCOUNTER → 2020-05-04 | Outpatient (CLI) | payer OTHER | END | disposition home or self-care (01) | LOC: LABPAT 08:44 | PROVIDERS: ATTEND Surgery | DX: Z01.818 Encounter for other preprocedural examination (principal); K43.0 Incisional hernia with obstruction, without gangrene | CPT/HCPCS: 36415; 86850; 86900; 86901; 93005 ==

== ENCOUNTER 2020-05-11 09:01 | Day surgery (SDC) | payer OTHER ==
[2020-05-09 13:19] VITALS: BMI 31.5
[~2020-05-11 09:01] MED LIST: ACETAMINOPHEN TAB 500 MG TAB PO PRN; DEXAMETHASONE SOD PHOSPHATE 4 MG/ML 1 ML VIAL IV ONE; HEPARIN SODIUM,PORCINE 5,000 UNIT/ML 1 ML VIAL SQ PRN; LACTATED RINGERS 1,000 ML IV SCH; LIDOCAINE 1% (10MG/ML) FOR IV START INTRADERMA PRN; METOCLOPRAMIDE 5 MG/ML 2 ML VIAL IVP PRN; ONDANSETRON 4 MG/2 ML VIAL IVP ONE
[2020-05-11] MEDS ORDERED: LIDOCAINE 1% (10MG/ML) FOR IV START SQ ONE (09:39)
[2020-05-11 09:51] LABS: Glucose,Whole Blood 178 mg/dL (75-99)
[2020-05-11 09:59] LABS: Basophils # (A) 0.1 k/uL (0-0.2); Basophils % (A) 1 %; Eosinophils # (A) 0.2 k/uL (0-0.7); Eosinophils % (A) 3 %; HCT 43.4 % (34.0-46.0); HGB 14.6 gm/dL (11.4-16.0); Lymphocytes % (A) 37 %; MCH 30.2 pg (25.0-35.0); MCHC 33.8 g/dL (31.0-37.0); MCV 89.4 fL (80.0-100.0); Monocytes # (A) 0.4 k/uL (0-1.0); Monocytes % (A) 6 %; Neutrophils # (A) 4.3 k/uL (1.3-7.7); Neutrophils % (A) 53 %; Platelet Count 312 k/uL (150-450); RBC 4.85 m/uL (3.80-5.40); RDW 12.7 % (11.5-15.5); WBC 8.1 k/uL (3.8-10.6)
[2020-05-11] MEDS ORDERED: MIDAZOLAM 2 MG/2 ML VIAL IVP ONE (10:03)
--- NOTE | 2020-05-11 10:40 | P.GSHP ---
History of Present Illness H&P Date: 05/11/20 Chief Complaint: Incisional hernia This is a 60-year-old female who has developed an incisional hernia located at her midline epigastric incision. Patient presents today for laparoscopic robotic-assisted repair. Past Medical History Past Medical History: COPD, Diabetes Mellitus, Hyperlipidemia, Hypertension, Thyroid Disorder Additional Past Medical History / Comment(s): back pain History of Any Multi-Drug Resistant Organisms: None Reported Past Surgical History: Appendectomy, Breast Surgery, Cholecystectomy, Hernia Repair, Hysterectomy, Orthopedic Surgery, Tonsillectomy Additional Past Surgical History / Comment(s): hernia repair, (R) carpel tunnel surgery, (L) breast lumpectomy Past Anesthesia/Blood Transfusion Reactions: No Reported Reaction Smoking Status: Former smoker - Past Family History Mother Family Medical History: No Reported History Medications and Allergies Home Medications Medication Instructions Recorded Confirmed Type Estrogens, Conjugated [Premarin] 0.625 mg PO DAILY 05/20/15 05/09/20 History Levothyroxine Sodium [Synthroid] 25 mcg PO DAILY 05/20/15 05/09/20 History hydrOXYzine pamoate [Vistaril] 25 mg PO DAILY PRN 08/26/17 05/11/20 History traZODone HCL [Desyrel] 100 mg PO HS 08/26/17 05/11/20 History Acetaminophen Tab [Tylenol Tab] 325 mg PO Q6H PRN #20 tablet 08/27/17 05/11/20 Rx Atorvastatin [Lipitor] 20 mg PO HS 05/09/20 05/11/20 History Glimepiride [Amaryl] 4 mg PO AC-[id number] 05/09/20 05/09/20 History Terbinafine [LamISIL] 250 mg PO DAILY 05/09/20 05/11/20 History amLODIPine [Norvasc] 5 mg PO DAILY 05/09/20 05/09/20 History buPROPion HCL [Wellbutrin XL] 300 mg PO DAILY 05/09/20 05/09/20 History lisinopriL [Zestril] 20 mg PO DAILY 05/09/20 05/09/20 History metFORMIN HCL [Glucophage] 500 mg PO DAILY 05/09/20 05/11/20 History tiZANidine [Zanaflex] 4 mg PO Q8HR PRN 05/09/20 05/11/20 History Omeprazole 20 mg PO 05/11/20 05/11/20 History buPROPion XL [Wellbutrin Xl] 300 mg PO DAILY 05/11/20 05/11/20 History Allergies Allergy/AdvReac Type Severity Reaction Status Date / Time cefaclor [From Ceclor] Allergy Rash/Hives Verified 05/11/20 09:31 prochlorperazine Allergy STRANGE Verified 05/11/20 09:31 [From Compazine] BODY FEELING-SPASM LIKE prochlorperazine edisylate Allergy STRANGE Verified 05/11/20 09:31 [From Compazine] BODY FEELING-SPASM LIKE prochlorperazine maleate Allergy STRANGE Verified 05/11/20 09:31 [From Compazine] BODY FEELING-SPASM LIKE tetracycline Allergy Nausea & Verified 05/11/20 09:31 Vomiting erythromycin base AdvReac Rash/Hives Verified 05/11/20 09:31 levofloxacin [From Levaquin] AdvReac Rash/Hives Verified 05/11/20 09:31 Surgical - Exam Vital Signs Temp Pulse Resp BP Pulse Ox 98.5 F 77 16 157/86 96 05/11/20 09:35 05/11/20 09:35 05/11/20 09:35 05/11/20 09:35 05/11/20 09:35 - General well developed, well nourished, no distress - Eyes PERRL - ENT normal pinna - Neck no masses - Respiratory normal expansion - Cardiovascular Rhythm: regular - Abdomen Abdomen: soft, non tender Hernia: incisional (5 cm) Results - Labs 05/11/20 09:41 Abnormal Lab Results - Last 24 Hours (Table) 05/11/20 Range/Units 09:42 POC Glucose (mg/dL) 178 H (75-99) mg/dL Assessment and Plan Assessment: Incisional hernia. We'll perform laparoscopic robotic-assisted repair.
[2020-05-11] MEDS ORDERED: ROCURONIUM 10 MG/ML (5 ML VIAL) IV ONE (10:54)
[2020-05-11] MEDS ORDERED: KETOROLAC 15 MG/ML 1 ML VIAL ONE (10:54)
[2020-05-11] MEDS ORDERED: NEOSTIGMINE 1 MG/ML 10 ML VIAL ONE (10:54)
[2020-05-11] MEDS ORDERED: SODIUM CHLORIDE 0.9% (PF) 10 ML VIAL ONE (10:54)
[2020-05-11] MEDS ORDERED: GLYCOPYRROLATE 0.2 MG/ML 2 ML VIAL ONE (10:54)
[2020-05-11] MEDS ORDERED: ROPIVACAINE 5 MG/ML 30 ML VIAL ONE (10:54)
[2020-05-11] MEDS ORDERED: SUCCINYLCHOLINE CHLORIDE 100 MG/5 ML SYR IV ONE (10:54)
[2020-05-11] MEDS ORDERED: PROPOFOL 10 MG/ML 20 ML VIAL IV ONE (10:54)
[2020-05-11] MEDS ORDERED: MIDAZOLAM 2 MG/2 ML VIAL ONE (10:54)
[2020-05-11] MEDS ORDERED: HYDROmorphone (PF) 1 MG/ML ONE (10:54)
[2020-05-11] MEDS ORDERED: LIDOCAINE 1% INJ 10MG/ML (20 ML MDV) ONE (10:54)
[2020-05-11] MEDS ORDERED: fentaNYL (PF) 50 MCG/ML 2 ML AMP ONE (10:54)
[2020-05-11] MEDS ORDERED: BUPIVACAIN-EPI 0.5%-1:200,000 30 ML VIAL SQ ONE (11:24)
[2020-05-11 12:15] VITALS: TEMP 98.4
[2020-05-11 12:18] VITALS: RESP 16
[2020-05-11] MEDS: HYDROmorphone 0.5 MG/0.5 ML SYRINGE IVP PRN ×2 (12:23→12:28)
[2020-05-11] MEDS ORDERED: LACTATED RINGERS 1,000 ML IV ONE (12:27)
[2020-05-11 12:39] LABS: Glucose,Whole Blood 225 mg/dL (75-99)
[2020-05-11] MEDS ORDERED: INSULIN ASPART (NovoLOG) 100 UNIT/ML VIAL SQ ONE (12:41)
--- NOTE | 2020-05-11 12:57 | P.OP ---
Date of Procedure: 05/11/20 Preoperative Diagnosis: Incisional hernia Postoperative Diagnosis: Incisional hernia Procedure(s) Performed: Laparoscopic robotic-assisted repair of incisional hernia Partial omentectomy Anesthesia: KEITH Surgeon: Florian Osorio Estimated Blood Loss (ml): 10 Pathology: other (Omentum) Disposition: PACU Description of Procedure: The patient was placed on the operating table in the supine position. He received general anesthesia. His abdomen was prepped and draped usual fashion. Using a 5 mm optical trocar under direct visualization the peritoneal cavity was entered in the left upper quadrant. The abdomen was then insufflated. The laparoscope was placed back into the perineal cavity. Next a 8 mm robotic trocar was placed in the left lower quadrant and a 12 mm robotic trocar was placed in the left lateral position. The original 5 mm trocar was exchanged for a 8 mm robotic trocar. The patient's placed in the left side up position. And the patient was docked to the robot. The incisional hernia was visualized. Using hook cautery the peritoneum over the incisional hernia was excised. The incarcerated omentum was dissected free and sent to pathology. The fascial opening was repaired using 0V LOC suture. Next a piece of 11 cm round ventral light ST mesh was placed into the. Cavity and secured with 2 OV lock suture. The patient was undocked the robot. The needles were retrieved. The fascia of the 12 mm trocar site was closed with 0 Ethibond suture. Skin was closed i nterrupted 3-0 Monocryl suture. Dermabond dressings was applied. Patient tolerated procedure well and was sent to recovery room stable condition.
[2020-05-11 13:27] LABS: Glucose,Whole Blood 230 mg/dL (75-99)
[2020-05-11 14:02] VITALS: BP 148/86; PULSE 89
[2020-05-11 14:11] LABS: Glucose,Whole Blood 202 mg/dL (75-99)
--- NOTE | 2020-05-12 08:45 | P.ANPRN ---
Procedure Note - Anesthesia - Nerve Block Performed Bilateral Erector Spinae Single Time Out Performed: Yes Date of Procedure: 05/11/20 Procedure Start Time: : Procedure Stop Time: :09 Location of Patient: PreOp Indication: Acute Post-Operative Pain, Requested by Surgeon Sedation Type: Sedate with meaningful contact maintained Preparation: Sterile Prep Position: Prone Needle Types: [place] Needle Gauge: 21 Ultrasound used to visualize needle placement: Yes Ultrasound used to observe medication spread: Yes Blood Aspirated: No Pain Paresthesia on Injection Noted: No Resistance on Injection: Normal Image Stored and Saved: Yes Events: Uneventful and Well Tolerated (ropi .25% 30cc at t12 bilareally)
== END 2020-05-11 14:49 | disposition home or self-care (01) ==
LOC: OR 09:01
PROVIDERS: ATTEND Surgery
DX: K43.2 Incisional hernia without obstruction or gangrene (principal); J44.9 Chronic obstructive pulmonary disease, unspecified; E11.9 Type 2 diabetes mellitus without complications; E78.5 Hyperlipidemia, unspecified; I10 Essential (primary) hypertension; E07.9 Disorder of thyroid, unspecified; M54.9 Dorsalgia, unspecified; Z90.49 Acquired absence of other specified parts of digestive tract; Z98.890 Other specified postprocedural states; Z90.710 Acquired absence of both cervix and uterus; Z90.89 Acquired absence of other organs; Z87.891 Personal history of nicotine dependence; Z79.890 Hormone replacement therapy; Z79.84 Long term (current) use of oral hypoglycemic drugs; Z79.899 Other long term (current) drug therapy; Z88.8 Allergy status to other drugs, medicaments and biological substances; Z88.1 Allergy status to other antibiotic agents
CPT/HCPCS: 49654; S2900; 36415; 64999; 76942; 85025; 86850; 86900; 86901; 88302

== ENCOUNTER 2020-06-24 01:01 | Emergency (ER) | payer OTHER ==
[2020-06-24 01:12] VITALS: RESP 16; TEMP 98.4
[2020-06-24] MEDS ORDERED: ONDANSETRON 4 MG/2 ML VIAL IVP STA (01:40)
[2020-06-24] MEDS ORDERED: SODIUM CHLORIDE 0.9% 1,000 ML IV STA (01:40)
[2020-06-24] MEDS ORDERED: HYDROmorphone 1 MG/ML 1 ML SYRINGE IVP STA ×2 (01:40→03:45)
[2020-06-24 02:17] LABS: Basophils # (A) 0.1 k/uL (0-0.2); Basophils % (A) 1 %; Eosinophils # (A) 0.3 k/uL (0-0.7); Eosinophils % (A) 3 %; HCT 39.7 % (34.0-46.0); HGB 13.6 gm/dL (11.4-16.0); Lymphocytes # (A) 3.1 k/uL (1.0-4.8); Lymphocytes % (A) 35 %; MCH 30.5 pg (25.0-35.0); MCHC 34.2 g/dL (31.0-37.0); MCV 89.1 fL (80.0-100.0); Mean Platelet Volume 7.6; Monocytes # (A) 0.6 k/uL (0-1.0); Monocytes % (A) 6 %; Neutrophils # (A) 4.7 k/uL (1.3-7.7); Neutrophils % (A) 53 %; Platelet Count 355 k/uL (150-450); RBC 4.45 m/uL (3.80-5.40); RDW 12.8 % (11.5-15.5)
--- NOTE | 2020-06-24 02:19 | ED ---
Abdominal Pain HPI - General Chief Complaint: Abdominal Pain Stated Complaint: Abd Pain Time Seen by Provider: 06/24/20 01:36 Source: patient Mode of arrival: wheelchair Limitations: no limitations - History of Present Illness Initial Comments: 60-year-old female patient presents to the emergency department today for evaluation of left-sided abdominal pain. Patient states pain started approximately 2 weeks ago and has been worsening. States it worsened significantly over the last 24 hours. States it radiates through to her back. She did have hernia repair with Dr. Osorio 6 weeks ago. States she was feeling better so she did not go to a follow-up appointment and then approximately a week after that appointment she started to have this pain. Denies any fever or chills. Denies any nausea or vomiting. Reports normal bowel movements. She has had other hernia repairs in the past but denies any other abdominal surgeries. Denies any chest pain or shortness of breath. Denies hematuria, dysuria, urinary frequency, urinary urgency. Patient denies any recent rash, cough, numbness, tingling, dizziness, weakness, headache, visual changes, or any other complaints. - Related Data Home Medications Medication Instructions Recorded Confirmed Estrogens, Conjugated [Premarin] 0.625 mg PO DAILY 05/20/15 05/09/20 Levothyroxine Sodium [Synthroid] 25 mcg PO DAILY 05/20/15 05/09/20 hydrOXYzine pamoate [Vistaril] 25 mg PO DAILY PRN 08/26/17 05/11/20 traZODone HCL [Desyrel] 100 mg PO HS 08/26/17 05/11/20 Atorvastatin [Lipitor] 20 mg PO HS 05/09/20 05/11/20 Glimepiride [Amaryl] 4 mg PO AC-BRKFST 05/09/20 05/09/20 Terbinafine [LamISIL] 250 mg PO DAILY 05/09/20 05/11/20 amLODIPine [Norvasc] 5 mg PO DAILY 05/09/20 05/09/20 buPROPion HCL [Wellbutrin XL] 300 mg PO DAILY 05/09/20 05/09/20 lisinopriL [Zestril] 20 mg PO DAILY 05/09/20 05/09/20 metFORMIN HCL [Glucophage] 500 mg PO DAILY 05/09/20 05/11/20 tiZANidine [Zanaflex] 4 mg PO Q8HR PRN 05/09/20 05/11/20 Omeprazole 20 mg PO 05/11/20 05/11/20 buPROPion XL [Wellbutrin Xl] 300 mg PO DAILY 05/11/20 05/11/20 Previous Rx's Medication Instructions Recorded Acetaminophen Tab [Tylenol Tab] 325 mg PO Q6H PRN #20 tablet 08/27/17 Acetaminophen Tab [Tylenol] 650 mg PO Q6H #30 tab 05/11/20 Docusate [Colace] 100 mg PO BID #20 capsule 05/11/20 Ibuprofen [Motrin] 600 mg PO Q6HR PRN #40 tab 05/11/20 oxyCODONE HCL [OxyIR] 5 mg PO Q4H PRN 3 Days #18 tab 05/11/20 Allergies Allergy/AdvReac Type Severity Reaction Status Date / Time cefaclor [From Ceclor] Allergy Rash/Hives Verified 06/24/20 01:09 prochlorperazine Allergy STRANGE Verified 06/24/20 01:09 [From Compazine] BODY FEELING-SPASM LIKE prochlorperazine edisylate Allergy STRANGE Verified 06/24/20 01:09 [From Compazine] BODY FEELING-SPASM LIKE prochlorperazine maleate Allergy STRANGE Verified 06/24/20 01:09 [From Compazine] BODY FEELING-SPASM LIKE tetracycline Allergy Nausea & Verified 06/24/20 01:09 Vomiting erythromycin base AdvReac Rash/Hives Verified 06/24/20 01:09 levofloxacin [From Levaquin] AdvReac Rash/Hives Verified 06/24/20 01:09 Review of Systems ROS Statement: Those systems with pertinent positive or pertinent negative responses have been documented in the HPI. ROS Other: All systems not noted in ROS Statement are negative. Past Medical History Past Medical History: COPD, Diabetes Mellitus, Hyperlipidemia, Hypertension, Thyroid Disorder Additional Past Medical History / Comment(s): back pain History of Any Multi-Drug Resistant Organisms: None Reported Past Surgical History: Appendectomy, Breast Surgery, Cholecystectomy, Hernia Repair, Hysterectomy, Orthopedic Surgery, Tonsillectomy Additional Past Surgical History / Comment(s): hernia repair, (R) carpel tunnel surgery, (L) breast lumpectomy Past Anesthesia/Blood Transfusion Reactions: No Reported Reaction Past Psychological History: Anxiety, Depression Smoking Status: Former smoker Past Alcohol Use History: None Reported Past Drug Use History: None Reported - Past Family History Mother Family Medical History: No Reported History General Exam Limitations: no limitations General appearance: alert, in no apparent distress, other (This is a well- developed, well-nourished adult female patient in mild distress related to pain. Vital signs upon presentation are temperature 98.4F, pulse 84, respirations 16, blood pressure 174/91, pulse ox 96% on room air.) Eye exam: Present: normal appearance, PERRL, EOMI. Absent: scleral icterus, conjunctival injection, periorbital swelling ENT exam: Present: normal exam, normal oropharynx, mucous membranes moist Respiratory exam: Present: normal lung sounds bilaterally. Absent: respiratory distress, wheezes, rales, rhonchi, stridor Cardiovascular Exam: Present: regular rate, normal rhythm, normal heart sounds. Absent: systolic murmur, diastolic murmur, rubs, gallop, clicks GI/Abdominal exam: Present: soft, tenderness (Left lower quadrant, left upper quadrant), guarding, normal bowel sounds. Absent: distended, rebound, rigid Neurological exam: Present: alert, oriented X3, CN II-XII intact Psychiatric exam: Present: normal affect, normal mood Skin exam: Present: warm, dry, intact, normal color. Absent: rash Course Vital Signs 06/24/20 01:10 Temperature 98.4 F Pulse Rate 84 Respiratory 16 Rate Blood Pressure 174/91 O2 Sat by Pulse 96 Oximetry Medical Decision Making - Medical Decision Making 60-year-old female patient presented to the emergency department today for evaluation of left-sided abdominal pain that started a couple of weeks ago worsened over the last 24-48 hours. She is tolerating oral intake, having normal bowel movements. Labs reviewed and did reveal elevated lactic acid of her blood sugar is elevated as well as most likely due to dehydration. She is afebrile normal vital signs. CT abdomen and pelvis was obtained and showed no acute abnormalities, there was moderate stool burden throughout the colon. I did discuss findings and results with her. She will be discharged to follow-up with Dr. Osorio as soon as possible. She is instructed follow up with her primary care physician for recheck in 1-2 days. Return parameters were discussed in detail. She verbalizes understanding and agrees with this plan. Case discussed with my attending Dr. Garcia. - Lab Data Result diagrams: 06/24/20 01:51 06/24/20 01:51 Lab Results 06/24/20 06/24/20 06/24/20 Range/Units 01:51 01:51 01:51 WBC 9.0 (3.8-10.6) k/uL RBC 4.45 (3.80-5.40) m/uL Hgb 13.6 (11.4-16.0) gm/dL Hct 39.7 (34.0-46.0) % MCV 89.1 (80.0-100.0) fL MCH 30.5 (25.0-35.0) pg MCHC 34.2 (31.0-37.0) g/dL RDW 12.8 (11.5-15.5) % Plt Count 355 (150-450) k/uL MPV 7.6 Neutrophils % 53 % Lymphocytes % 35 % Monocytes % 6 % Eosinophils % 3 % Basophils % 1 % Neutrophils # 4.7 (1.3-7.7) k/uL Lymphocytes # 3.1 (1.0-4.8) k/uL Monocytes # 0.6 (0-1.0) k/uL Eosinophils # 0.3 (0-0.7) k/uL Basophils # 0.1 (0-0.2) k/uL PT (9.0-12.0) sec INR (<1.2) APTT (22.0-30.0) sec Sodium 133 L (137-145) mmol/L Potassium 4.6 (3.5-5.1) mmol/L Chloride 102 (98-107) mmol/L Carbon Dioxide 21 L (22-30) mmol/L Anion Gap 10 mmol/L BUN 16 (7-17) mg/dL Creatinine 0.89 (0.52-1.04) mg/dL Est GFR (CKD-EPI)AfAm 81 (>60 ml/min/1.73 sqM) Est GFR (CKD-EPI)NonAf 70 (>60 ml/min/1.73 sqM) Glucose 251 H (74-99) mg/dL Plasma Lactic Acid Jemal (0.7-2.0) mmol/L Calcium 9.2 (8.4-10.2) mg/dL Total Bilirubin 0.3 (0.2-1.3) mg/dL AST 28 (14-36) U/L ALT 14 (4-34) U/L Alkaline Phosphatase 90 (38-126) U/L Total Protein 6.6 (6.3-8.2) g/dL Albumin 4.0 (3.5-5.0) g/dL Amylase 87 (30-110) U/L Lipase 286 (23-300) U/L Urine Color Yellow Urine Appearance Clear (Clear) Urine pH 5.0 (5.0-8.0) Ur Specific [place] 1.024 (1.001-1.035) Urine Protein Negative (Negative) Urine Glucose (UA) 3+ H (Negative) Urine Ketones Negative (Negative) Urine Blood Negative (Negative) Urine Nitrite Negative (Negative) Urine Bilirubin Negative (Negative) Urine Urobilinogen <2.0 (<2.0) mg/dL Ur Leukocyte Esterase Negative (Negative) 06/24/20 06/24/20 Range/Units 01:51 01:51 WBC (3.8-10.6) k/uL RBC (3.80-5.40) m/uL Hgb (11.4-16.0) gm/dL Hct (34.0-46.0) % MCV (80.0-100.0) fL MCH (25.0-35.0) pg MCHC (31.0-37.0) g/dL RDW (11.5-15.5) % Plt Count (150-450) k/uL MPV Neutrophils % % Lymphocytes % % Monocytes % % Eosinophils % % Basophils % % Neutrophils # (1.3-7.7) k/uL Lymphocytes # (1.0-4.8) k/uL Monocytes # (0-1.0) k/uL Eosinophils # (0-0.7) k/uL Basophils # (0-0.2) k/uL PT 10.1 (9.0-12.0) sec INR 0.9 (<1.2) APTT 22.5 (22.0-30.0) sec Sodium (137-145) mmol/L Potassium (3.5-5.1) mmol/L Chloride (98-107) mmol/L Carbon Dioxide (22-30) mmol/L Anion Gap mmol/L BUN (7-17) mg/dL Creatinine (0.52-1.04) mg/dL Est GFR (CKD-EPI)AfAm (>60 ml/min/1.73 sqM) Est GFR (CKD-EPI)NonAf (>60 ml/min/1.73 sqM) Glucose (74-99) mg/dL Plasma Lactic Acid Jemal 2.5 H* (0.7-2.0) mmol/L Calcium (8.4-10.2) mg/dL Total Bilirubin (0.2-1.3) mg/dL AST (14-36) U/L ALT (4-34) U/L Alkaline Phosphatase (38-126) U/L Total Protein (6.3-8.2) g/dL Albumin (3.5-5.0) g/dL Amylase (30-110) U/L Lipase (23-300) U/L Urine Color Urine Appearance (Clear) Urine pH (5.0-8.0) Ur Specific [place] (1.001-1.035) Urine Protein (Negative) Urine Glucose (UA) (Negative) Urine Ketones (Negative) Urine Blood (Negative) Urine Nitrite (Negative) Urine Bilirubin (Negative) Urine Urobilinogen (<2.0) mg/dL Ur Leukocyte Esterase (Negative) - Radiology Data Radiology results: report reviewed, image reviewed CT abdomen and pelvis is obtained. Report was reviewed in its entirety. Impression by Dr. Jackson shows no acute intra-abdominal process. Disposition Clinical Impression: Abdominal pain, Dehydration Disposition: HOME SELF-CARE Condition: Good Instructions (If sedation given, give patient instructions): Dehydration (ED), Abdominal Pain (ED) Additional Instructions: Call Dr. Osorio's office first thing in the morning. Medication sparingly for pain. Increase fluids. Return for any new, worsening, or concerning symptoms. Is patient prescribed a controlled substance at d/c from ED?: No Referrals: Elias Bermudez DO [Primary Care Provider] - 1-2 days Time of Disposition: 03:46
[2020-06-24 02:47] LABS: INR 0.9 (<1.2); Partial Thromboplastin Time 22.5 sec (22.0-30.0); Prothrombin Time 10.1 sec (9.0-12.0)
[2020-06-24 02:48] LABS: Appearance,Urine Clear (Clear); Bilirubin,Urine Negative (Negative); Blood,Urine Negative (Negative); Color,Urine Yellow; Glucose,Urine (UA) 3+ (Negative); Ketones,Urine Negative (Negative); Leukocyte Esterase,Urine Negative (Negative); Nitrite,Urine Negative (Negative); Protein,Urine Negative (Negative); Specific Gravity,Urine 1.024 (1.001-1.035); Urobilinogen,Urine <2.0 mg/dL (<2.0)
[2020-06-24 02:54] LABS: Calcium 9.2 mg/dL (8.4-10.2); Potassium 4.6 mmol/L (3.5-5.1); Total Bilirubin 0.3 mg/dL (0.2-1.3); Total Protein 6.6 g/dL (6.3-8.2)
--- NOTE | 2020-06-24 03:24 | CT ---
EXAM: CT Abdomen and Pelvis With Intravenous Contrast CLINICAL HISTORY: ITS.REASON CT Reason: abdominal pain TECHNIQUE: Axial computed tomography images of the abdomen and pelvis with intravenous contrast. CTDI is 28.37 mGy and DLP is 1115.7 mGy-cm. This CT exam was performed using one or more of the following dose reduction techniques: automated exposure control, adjustment of the mA and/or kV according to patient size, and/or use of iterative reconstruction technique. COMPARISON: No relevant prior studies available. FINDINGS: Lung bases: Unremarkable. No mass. No consolidation. ABDOMEN: Liver: Diffusely hypoattenuating liver. No mass. Gallbladder and bile ducts: Surgically absent. No ductal dilation. Pancreas: Unremarkable. No mass. No ductal dilation. Spleen: Unremarkable. No splenomegaly. Adrenals: Unremarkable. No mass. Kidneys and ureters: Unremarkable. No solid mass. No hydronephrosis. Stomach and bowel: Moderate fecal burden throughout the colon. No obstruction. No mucosal thickening. PELVIS: Appendix: Surgically absent Bladder: Unremarkable. No mass. Reproductive: Unremarkable as visualized. ABDOMEN and PELVIS: Intraperitoneal space: Unremarkable. No free air. No significant fluid collection. Bones/joints: No acute fracture. No dislocation. Soft tissues: Unremarkable. Vasculature: Unremarkable. No abdominal aortic aneurysm. Lymph nodes: Unremarkable. No enlarged lymph nodes. IMPRESSION: No acute intra-abdominal process.
[2020-06-24] MEDS ORDERED: ACET/COD 300 MG/30 MG STARTER PACK 6 TAB BTL PO STA (03:45)
[2020-06-24 04:34] VITALS: BP 168/88; PULSE 78
== END 2020-06-24 04:35 | disposition home or self-care (01) ==
LOC: EC 01:01
DX: R10.9 Unspecified abdominal pain (principal); E86.0 Dehydration; J44.9 Chronic obstructive pulmonary disease, unspecified; E11.9 Type 2 diabetes mellitus without complications; E78.5 Hyperlipidemia, unspecified; I10 Essential (primary) hypertension; E07.9 Disorder of thyroid, unspecified; Z90.49 Acquired absence of other specified parts of digestive tract; Z90.710 Acquired absence of both cervix and uterus; Z90.09 Acquired absence of other part of head and neck; F32.9 Major depressive disorder, single episode, unspecified; Z87.891 Personal history of nicotine dependence; Z79.84 Long term (current) use of oral hypoglycemic drugs
CPT/HCPCS: 36415; 80053; 82150; 83605; 83690; 85025; 85610; 85730; 81003; 74177; 99284; 96374; 96375 ×2; J2405; J1170; Q9967

== ENCOUNTER 2021-01-12 07:36 | Day surgery (SDC) | payer OTHER ==
[2021-01-11 09:42] VITALS: BMI 30.2
[~2021-01-12 07:36] MED LIST changes: -ACETAMINOPHEN TAB 500 MG TAB PO PRN; -DEXAMETHASONE SOD PHOSPHATE 4 MG/ML 1 ML VIAL IV ONE; -HEPARIN SODIUM,PORCINE 5,000 UNIT/ML 1 ML VIAL SQ PRN; -METOCLOPRAMIDE 5 MG/ML 2 ML VIAL IVP PRN; -ONDANSETRON 4 MG/2 ML VIAL IVP ONE
[2021-01-12 08:01] VITALS: RESP 16; TEMP 97.3
[2021-01-12 08:08] LABS: Glucose,Whole Blood 129 mg/dL (75-99)
[2021-01-12] MEDS ORDERED: PROPOFOL 10 MG/ML 20 ML VIAL IV ONE (09:08)
--- NOTE | 2021-01-12 09:13 | P.GSHP ---
History of Present Illness H&P Date: 01/12/21 Chief Complaint: Screening colonoscopy This a 60-year-old female who presents today for screening colonoscopy. Patient denies a significant GI complaints. Past Medical History Past Medical History: COPD, Diabetes Mellitus, Hyperlipidemia, Hypertension, Supraventricular Tachycardia (SVT), Thyroid Disorder Additional Past Medical History / Comment(s): back pain, LLQ ABD PAIN AFTER MEALS WITH DIARRHEA History of Any Multi-Drug Resistant Organisms: None Reported Past Surgical History: Appendectomy, Breast Surgery, Cholecystectomy, Hernia Repair, Hysterectomy, Orthopedic Surgery, Tonsillectomy Additional Past Surgical History / Comment(s): hernia repair X3, (R) carpel tunnel surgery, (L) breast lumpectomy, COLONOSCOPY Past Anesthesia/Blood Transfusion Reactions: No Reported Reaction Smoking Status: Former smoker - Past Family History Mother Family Medical History: No Reported History Medications and Allergies Home Medications Medication Instructions Recorded Confirmed Type Levothyroxine Sodium [Synthroid] 25 mcg PO DAILY 05/20/15 01/11/21 History hydrOXYzine pamoate [Vistaril] 25 mg PO DAILY PRN 08/26/17 01/11/21 History traZODone HCL [Desyrel] 100 mg PO HS 08/26/17 01/11/21 History Atorvastatin [Lipitor] 20 mg PO HS 05/09/20 01/11/21 History Glimepiride [Amaryl] 4 mg PO AC-BRKFST 05/09/20 01/11/21 History buPROPion HCL [Wellbutrin XL] 300 mg PO DAILY 05/09/20 01/11/21 History lisinopriL [Zestril] 20 mg PO DAILY 05/09/20 01/11/21 History metFORMIN HCL [Glucophage] 500 mg PO DAILY 05/09/20 01/11/21 History tiZANidine [Zanaflex] 4 mg PO Q8HR PRN 05/09/20 01/11/21 History Acetaminophen Tab [Tylenol] 650 mg PO Q6H #30 tab 05/11/20 01/11/21 Rx Omeprazole 20 mg PO DAILY 05/11/20 01/11/21 History Dulaglutide [Trulicity] 0.75 mg SQ TU 01/11/21 01/11/21 History amLODIPine [Norvasc] 10 mg PO DAILY 01/11/21 01/11/21 History Allergies Allergy/AdvReac Type Severity Reaction Status Date / Time cefaclor [From Ceclor] Allergy Rash/Hives Verified 01/12/21 07:56 prochlorperazine Allergy STRANGE Verified 01/12/21 07:56 [From Compazine] BODY FEELING-SPASM LIKE prochlorperazine edisylate Allergy STRANGE Verified 01/12/21 07:56 [From Compazine] BODY FEELING-SPASM LIKE prochlorperazine maleate Allergy STRANGE Verified 01/12/21 07:56 [From Compazine] BODY FEELING-SPASM LIKE tetracycline Allergy Nausea & Verified 01/12/21 07:56 Vomiting erythromycin base AdvReac Rash/Hives Verified 01/12/21 07:56 levofloxacin [From Levaquin] AdvReac Rash/Hives Verified 01/12/21 07:56 Surgical - Exam Vital Signs Temp Pulse Resp BP Pulse Ox 97.3 F L 72 16 125/75 97 01/12/21 07:59 01/12/21 07:59 01/12/21 07:59 01/12/21 07:59 01/12/21 07:59 - General well developed, well nourished, no distress - Eyes PERRL - ENT normal pinna - Neck no masses - Cardiovascular Rhythm: regular - Abdomen Abdomen: soft, non tender Results - Labs Abnormal Lab Results - Last 24 Hours (Table) 01/12/21 Range/Units 08:07 POC Glucose (mg/dL) 129 H (75-99) mg/dL Assessment and Plan Assessment: We'll perform screening colonoscopy.
--- NOTE | 2021-01-12 09:29 | P.OP ---
Date of Procedure: 01/12/21 Preoperative Diagnosis: Screening colonoscopy Postoperative Diagnosis: Diverticulosis External hemorrhoids Sigmoid colon polyp Procedure(s) Performed: Colonoscopy Anesthesia: MAC Surgeon: Florian Osorio Pathology: other (Sigmoid colon polyp) Description of Procedure: The patient's placed on the operating table in the lateral position. She received IV sedation. Digital rectal exam was performed which revealed external hemorrhoids. The flexible colonoscope was then placed patient anus and passed throughout the entire colon. The ileocecal valve was visualized. The cecum, ascending and transverse colon appeared normal. The descending and sigmoid colon there was moderate diverticulosis. In the sigmoid colon there was a polyp seen was removed with the cold forcep. Scope was withdrawn back the rectum and this appeared normal. Scope withdrawn for patient.
[2021-01-12 09:51] VITALS: BP 118/78; PULSE 76
== END 2021-01-12 10:52 | disposition home or self-care (01) ==
LOC: ORWHC2ENDO 07:36
PROVIDERS: ATTEND Surgery
DX: Z12.11 Encounter for screening for malignant neoplasm of colon (principal); K63.5 Polyp of colon; K57.30 Diverticulosis of large intestine without perforation or abscess without bleeding; K64.4 Residual hemorrhoidal skin tags; K21.9 Gastro-esophageal reflux disease without esophagitis; J44.9 Chronic obstructive pulmonary disease, unspecified; E11.9 Type 2 diabetes mellitus without complications; E78.5 Hyperlipidemia, unspecified; I10 Essential (primary) hypertension; M19.90 Unspecified osteoarthritis, unspecified site; I47.1 Supraventricular tachycardia; E07.9 Disorder of thyroid, unspecified; Z90.49 Acquired absence of other specified parts of digestive tract; Z90.710 Acquired absence of both cervix and uterus; Z98.890 Other specified postprocedural states; Z87.891 Personal history of nicotine dependence; Z79.84 Long term (current) use of oral hypoglycemic drugs; Z79.890 Hormone replacement therapy; Z79.899 Other long term (current) drug therapy; Z88.1 Allergy status to other antibiotic agents; Z88.8 Allergy status to other drugs, medicaments and biological substances
CPT/HCPCS: 88305; 45380; J2704

== ENCOUNTER 2021-08-18 23:47 | Emergency (ER) | payer OTHER ==
[2021-08-19 00:35] VITALS: BP 117/82; PULSE 69; RESP 16; TEMP 97.8
[2021-08-19] MEDS ORDERED: DIPH,PERTUS(ACELL)TETVAC-LF 0.5 ML VIAL IM ONE (00:41)
[2021-08-19] MEDS ORDERED: AMOXIC-POT CLAV 875-125MG 1 EACH TAB PO STA (00:41)
--- NOTE | 2021-08-19 00:45 | ED ---
Lower Extremity Injury HPI - General Chief Complaint: Burn/Smoke Inhalation Stated Complaint: LT foot burn Time Seen by Provider: 08/19/21 00:41 Source: patient, RN notes reviewed Mode of arrival: ambulatory Limitations: no limitations - History of Present Illness Initial Comments: 62-year-old diabetic female who burned the dorsum of her left foot on Saturday with hot oil from potatoes that she was cooking at a [employer]. Patient states that she has some increased swelling to the dorsum of the foot around the burn sites. This was a non-circumferential burn. Patient has been using antibiotic ointment. Patient has 4 sites to the dorsum of her left foot and left third toe consistent with partial-thickness lares. No circumferential lares. No other injuries. Patient states her last tetanus is been over 10 years. No history of MRSA No headache, no fever or chills, no changes in vision or hearing, no sore throat or difficulty with speech, no neck pain, no chest pain or shortness of breath, no abdominal pain, no nausea or vomiting, no changes in urination or bowel movements, no numbness or tingling, no skin rashes or lesions. - Related Data Home Medications Medication Instructions Recorded Confirmed Levothyroxine Sodium [Synthroid] 25 mcg PO DAILY 05/20/15 01/11/21 hydrOXYzine pamoate [Vistaril] 25 mg PO DAILY PRN 08/26/17 01/11/21 traZODone HCL [Desyrel] 100 mg PO HS 08/26/17 01/11/21 Atorvastatin [Lipitor] 20 mg PO HS 05/09/20 01/11/21 Glimepiride [Amaryl] 4 mg PO AC-BRKFST 05/09/20 01/11/21 buPROPion HCL [Wellbutrin XL] 300 mg PO DAILY 05/09/20 01/11/21 lisinopriL [Zestril] 20 mg PO DAILY 05/09/20 01/11/21 metFORMIN HCL [Glucophage] 500 mg PO DAILY 05/09/20 01/11/21 tiZANidine [Zanaflex] 4 mg PO Q8HR PRN 05/09/20 01/11/21 Omeprazole 20 mg PO DAILY 05/11/20 01/11/21 Dulaglutide [Trulicity] 0.75 mg SQ TU 01/11/21 01/11/21 amLODIPine [Norvasc] 10 mg PO DAILY 01/11/21 01/11/21 Previous Rx's Medication Instructions Recorded Acetaminophen Tab [Tylenol] 650 mg PO Q6H #30 tab 05/11/20 Amoxic-Pot Clav 875-125Mg 1 tab PO Q12HR 1 Days #10 tab 08/19/21 [Augmentin 875-125] Allergies Allergy/AdvReac Type Severity Reaction Status Date / Time cefaclor [From Ceclor] Allergy Rash/Hives Verified 08/19/21 00:32 prochlorperazine Allergy STRANGE Verified 08/19/21 00:32 [From Compazine] BODY FEELING-SPASM LIKE prochlorperazine edisylate Allergy STRANGE Verified 08/19/21 00:32 [From Compazine] BODY FEELING-SPASM LIKE prochlorperazine maleate Allergy STRANGE Verified 08/19/21 00:32 [From Compazine] BODY FEELING-SPASM LIKE tetracycline Allergy Nausea & Verified 08/19/21 00:32 Vomiting erythromycin base AdvReac Rash/Hives Verified 08/19/21 00:32 levofloxacin [From Levaquin] AdvReac Rash/Hives Verified 08/19/21 00:32 Review of Systems ROS Statement: Those systems with pertinent positive or pertinent negative responses have been documented in the HPI. ROS Other: All systems not noted in ROS Statement are negative. Past Medical History Past Medical History: COPD, Diabetes Mellitus, Hyperlipidemia, Hypertension, Supraventricular Tachycardia (SVT), Thyroid Disorder Additional Past Medical History / Comment(s): back pain, LLQ ABD PAIN AFTER MEALS WITH DIARRHEA History of Any Multi-Drug Resistant Organisms: None Reported Past Surgical History: Appendectomy, Breast Surgery, Cholecystectomy, Hernia Re pair, Hysterectomy, Orthopedic Surgery, Tonsillectomy Additional Past Surgical History / Comment(s): hernia repair X3, (R) carpel tunnel surgery, (L) breast lumpectomy, COLONOSCOPY Past Anesthesia/Blood Transfusion Reactions: No Reported Reaction Past Psychological History: Anxiety, Depression Smoking Status: Former smoker Past Alcohol Use History: None Reported Past Drug Use History: None Reported - Past Family History Mother Family Medical History: No Reported History General Exam - General Exam Comments Initial Comments: Nontoxic appearing female in no acute distress. Limitations: no limitations General appearance: alert, in no apparent distress Head exam: Present: atraumatic, normocephalic, normal inspection Eye exam: Present: normal appearance, EOMI ENT exam: Present: normal exam Neck exam: Present: normal inspection Respiratory exam: Present: normal lung sounds bilaterally. Absent: respiratory distress, wheezes, rales, rhonchi, stridor Cardiovascular Exam: Present: regular rate, normal rhythm, normal heart sounds. Absent: systolic murmur, diastolic murmur, rubs, gallop, clicks GI/Abdominal exam: Absent: tenderness Extremities exam: Present: full ROM, normal capillary refill, other (Patient has some edema to the dorsum of the foot. Patient has several spots from a spider type of burn injury involving oil. Some mild surrounding erythema. No lymphangitis. Pulses are 2+ out of 4. Capillary refill less than 2 seconds. Not circumferential, less than 1% BSA). Absent: normal inspection, tenderness Course Vital Signs 08/19/21 00:32 Temperature 97.8 F Pulse Rate 69 Respiratory 16 Rate Blood Pressure 117/82 O2 Sat by Pulse 94 L Oximetry Medical Decision Making - Medical Decision Making She has a partial-thickness burn to the dorsum of her left foot which is consistent with a splatter type burn from oil. This is much less than 1% BSA. It is not circumferential. Distal neurovascular is intact. There is infl ammation around the burn sites. There is no intact blisters. Pulses are intact. Going to treat the patient with Augmentin for possible early secondary infection. Patient was counseled on wound care. She voiced understanding. We'll have her follow-up with her primary care physician on Saturday. Patient was told to return to the ER for any signs or symptoms worsen. Told to return immediately if any other problems arise. All questions answered. Treatment plan discussed. Patient in agreement Every effort has been made to ensure accuracy of this dictation. However, due to the limitations of electronic medical records and dictation devices, errors in charting still occur. Nurse Licensed Practical Dr. Garcia Disposition Clinical Impression: Partial thickness burn of left foot Disposition: HOME SELF-CARE Condition: Good Instructions (If sedation given, give patient instructions): Second-Degree Burn (ED) Additional Instructions: Wash the wound daily with soap and water. Apply thin layer of antibiotic ointment daily, and sterile bandage. Take antibiotics as directed. Her tetanus was updated today. This also included diphtheria and pertussis. Make an appointment with Dr. Bermudez for reevaluation on Saturday or Saturday. Follow-up with your regular physician as directed. Return to the ER immediately if any symptoms worsen, new symptoms arise, or any other problems develop. Prescriptions: Amoxic-Pot Clav 875-125Mg [Augmentin 875-125] 1 tab PO Q12HR 1 Days #10 tab Is patient prescribed a controlled substance at d/c from ED?: No Referrals: Elias Bermudez DO [Primary Care Provider] - 08/21/21 Time of Disposition: 00:44
== END 2021-08-19 00:59 | disposition home or self-care (01) ==
LOC: EC 23:47
DX: T25.222A Burn of second degree of left foot, initial encounter (principal); T31.0 Burns involving less than 10% of body surface; J44.9 Chronic obstructive pulmonary disease, unspecified; E11.9 Type 2 diabetes mellitus without complications; I10 Essential (primary) hypertension; E78.5 Hyperlipidemia, unspecified; E07.9 Disorder of thyroid, unspecified; Z88.1 Allergy status to other antibiotic agents; Z88.0 Allergy status to penicillin; Z88.8 Allergy status to other drugs, medicaments and biological substances; Z23 Encounter for immunization; Z79.899 Other long term (current) drug therapy; Z79.84 Long term (current) use of oral hypoglycemic drugs; Z79.890 Hormone replacement therapy; X10.2XXA Contact with fats and cooking oils, initial encounter; Y93.G3 Activity, cooking and baking
CPT/HCPCS: 90471; 90715; 99283

== ENCOUNTER → 2022-08-02 | Outpatient (CLI) | payer OTHER ==
--- NOTE | 2022-08-02 19:44 | US ---
EXAMINATION TYPE: US thyroid st tissue head/neck DATE OF EXAM: 08/02/2022 COMPARISON: CT CLINICAL INDICATION: Female, 62 years old with history of E04.1 THYROID NODULE; Pt states her thyroid has been swollen for 3 weeks. Pt states she has been on thyroid medication for years GLAND SIZE: Right Lobe: 5.0 x 1.4 x 1.6 cm Overall Parenchyma: homogenous Left Lobe: 4.9 x 2.8 x 2.8 cm Overall Parenchyma: homogeneous Isthmus Thickness: 0.38 cm NODULES RIGHT: # of nodules measured on right: 2 1. 0.7 X 0.6 x 0.4 cm, upper mid, TIRADS Score: 0 TIRADS Category 1: Benign Composition: Cystic or almost completely cystic (0 points). Recommendation: No FNA 2. 0.9 X 0.9 x 0.8 cm, lower mid, TIRADS Score: 0 TIRADS Category 1: Benign Composition: Cystic or almost completely cystic (0 points). Recommendation: No FNA LEFT: # of nodules measured on left: 1 1. 3.1 2.7x 2.2 cm, mid mid, TIRADS Score: 0 TIRADS Category 1: Benign Composition: Cystic or almost completely cystic (0 points). Recommendation: No FNA ISTHMUS: # of nodules measured in the isthmus: 0 Bilateral neck scanned, no evidence of lymphadenopathy. IMPRESSION: Bilateral cystic appearing thyroid nodules. These do not meet criteria for follow-up by TI-RADS miryam quintanilla.
== END | disposition home or self-care (01) ==
LOC: RADUSWWP 17:02
PROVIDERS: ATTEND Family Medicine
DX: E04.2 Nontoxic multinodular goiter (principal)
CPT/HCPCS: 76536

== ENCOUNTER 2023-03-25 20:16 | Emergency (ER) | payer OTHER ==
--- NOTE | 2023-03-25 20:24 | ED ---
Skin/Abscess/FB HPI - General Source: patient, RN notes reviewed Mode of arrival: ambulatory Limitations: no limitations - History of Present Illness MD complaint: abscess/boil <Tricia Martinez - Last Filed: 03/25/23 20:21> <Jameson Venegas - Last Filed: 03/26/23 01:16> - General Chief complaint: Skin/Abscess/Foreign Body Stated complaint: Cyst on back Time Seen by Provider: 03/25/23 20:16 - History of Present Illness Initial comments: This is a 62-year-old female who presents to the emergency department for a cyst/abscess on her back. States that this is getting progressively worse. She has an appointment with Dr. Restrepo in April, but does not believe that she can make it this long. (Tricia Martinez) 62-year-old male with a past medical history significant for a sebaceous cyst presenting to the ED with a chief complaint of cyst patient notes that she has follow-up with Dr. Restrepo for removal of the sebaceous cyst however states that it is not until April. Patient states she has had this for the past year or so and notes it intermittently fills up with pus and she has her boyfriend. However states over the past few days has noticed this has been more swollen than usual, more painful than usual, and she has been having chills prompting presentation to the ED for further evaluation. Tetanus status unknown. No other complaints at this time. (Jameson Venegas) - Related Data Home Medications Medication Instructions Recorded Confirmed Levothyroxine Sodium [Synthroid] 25 mcg PO DAILY 05/20/15 01/11/21 hydrOXYzine pamoate [Vistaril] 25 mg PO DAILY PRN 08/26/17 01/11/21 traZODone HCL [Desyrel] 100 mg PO HS 08/26/17 01/11/21 Atorvastatin [Lipitor] 20 mg PO HS 05/09/20 01/11/21 Glimepiride [Amaryl] 4 mg PO [id number] 05/09/20 01/11/21 buPROPion HCL [Wellbutrin XL] 300 mg PO DAILY 05/09/20 01/11/21 lisinopriL [Zestril] 20 mg PO DAILY 05/09/20 01/11/21 metFORMIN HCL [Glucophage] 500 mg PO DAILY 05/09/20 01/11/21 tiZANidine [Zanaflex] 4 mg PO Q8HR PRN 05/09/20 01/11/21 Omeprazole 20 mg PO DAILY 05/11/20 01/11/21 Dulaglutide [Trulicity] 0.75 mg SQ TU 01/11/21 01/11/21 amLODIPine [Norvasc] 10 mg PO DAILY 01/11/21 01/11/21 Previous Rx's Medication Instructions Recorded Acetaminophen Tab [Tylenol] 650 mg PO Q6H #30 tab 05/11/20 Amoxic-Pot Clav 875-125Mg 1 tab PO Q12HR 1 Days #10 tab 08/19/21 [Augmentin 875-125] Clindamycin [Cleocin] 450 mg PO Q6H 7 Days #21 cap 03/26/23 Allergies Allergy/AdvReac Type Severity Reaction Status Date / Time cefaclor [From Ceclor] Allergy Rash/Hives Verified 03/25/23 20:45 empagliflozin Allergy Rash/Hives Verified 03/25/23 20:45 [From Jardiance] prochlorperazine Allergy STRANGE Verified 03/25/23 20:45 [From Compazine] BODY FEELING-SPASM LIKE prochlorperazine edisylate Allergy STRANGE Verified 03/25/23 20:45 [From Compazine] BODY FEELING-SPASM LIKE prochlorperazine maleate Allergy STRANGE Verified 03/25/23 20:45 [From Compazine] BODY FEELING-SPASM LIKE tetracycline Allergy Nausea & Verified 03/25/23 20:45 Vomiting erythromycin base AdvReac Rash/Hives Verified 03/25/23 20:45 levofloxacin [From Levaquin] AdvReac Rash/Hives Verified 03/25/23 20:45 Review of Systems ROS Other: All systems not noted in ROS Statement are negative. <Tricia Martinez - Last Filed: 03/25/23 20:21> ROS Other: All systems not noted in ROS Statement are negative. <Jameson Venegas - Last Filed: 03/26/23 01:16> ROS Statement: Those systems with pertinent positive or pertinent negative responses have been documented in the HPI. Past Medical History Past Medical History: COPD, Diabetes Mellitus, Hyperlipidemia, Hypertension, Supraventricular Tachycardia (SVT), Thyroid Disorder Additional Past Medical History / Comment(s): back pain, LLQ ABD PAIN AFTER MEALS WITH DIARRHEA History of Any Multi-Drug Resistant Organisms: None Reported Past Surgical History: Appendectomy, Breast Surgery, Cholecystectomy, Hernia Repair, Hysterectomy, Orthopedic Surgery, Tonsillectomy Additional Past Surgical History / Comment(s): hernia repair X3, (R) carpel tunnel surgery, (L) breast lumpectomy, COLONOSCOPY Past Anesthesia/Blood Transfusion Reactions: No Reported Reaction Past Psychological History: Anxiety, Depression Smoking Status: Former smoker Past Alcohol Use History: None Reported Past Drug Use History: None Reported - Past Family History Mother Family Medical History: No Reported History <Tricia Martinez - Last Filed: 03/25/23 20:21> General Exam <Tricia Martinez - Last Filed: 03/25/23 20:21> General appearance: alert, in no apparent distress Eye exam: Present: normal appearance Respiratory exam: Present: normal lung sounds bilaterally GI/Abdominal exam: Present: soft Back exam: Present: other (Patient has abscess measuring approximately 3 x 3 cm on the upper thoracic spine with some warmth and erythema.) Neurological exam: Present: alert, oriented X3 Skin exam: Present: warm, dry <Jameson Venegas - Last Filed: 03/26/23 01:16> - General Exam Comments Initial Comments: Visual Physical Exam Vital signs reviewed General: Well-appearing, nontoxic, no acute distress. Head: Normocephalic, atraumatic Eyes: PERRLA, EOMI ENT: Airway patent Chest: Nonlabored breathing Skin: No visual rash, normal skin tone Neuro: Alert and oriented 3 Musculoskeletal: No gross abnormalities (Tricia Martinez) Course Vital Signs 03/25/23 20:45 Temperature 98.5 F Pulse Rate 65 Respiratory 16 Rate Blood Pressure 117/75 O2 Sat by Pulse 96 Oximetry Procedures - Incision & Drainage Site: back Size (cm): 3 Anesthetic Used: with epi Amount (mLs): 4 I&D Cleaning Method: Chloroprep Sterile Field Used?: Yes Scalpel Used: #15 Ultrasound used: No Irrigation Performed?: Yes I&D Drainage Obtained: Pus Insertion of drain: No Culture Obtained?: Yes Patient Tolerated Procedure: well, no complications <TheoAleciaJameson - Last Filed: 03/26/23 01:16> Medical Decision Making <Tricia Martinez - Last Filed: 03/25/23 20:21> <TheoAleciaJameson - Last Filed: 03/26/23 01:16> - Medical Decision Making I performed the QuickNote portion of this chart. Signed Tricia Martinez PA-C. (Tricia Martinez) Was pt. sent in by a medical professional or institution (, [facility] [employer], urgent care, hospital, or group home...) When possible be specific @ -No Did you speak to anyone other than the patient for history (EMS, parent, family, police, friend...)? What history was obtained from this source @ -No Did you review nursing and triage notes (agree or disagree)? Why? @ -I reviewed and agree with nursing and triage notes Were old charts reviewed (outside hosp., previous admission, EMS record, old EKG, old radiological studies, urgent care reports/EKG's, group home records)? Report findings @ -No old charts were reviewed Differential Diagnosis (chest pain, altered mental status, abdominal pain women, abdominal pain men, vaginal bleeding, weakness, fever, dyspnea, syncope, headache, dizziness, GI bleed, back pain, seizure, CVA, palpatations, mental health, musculoskeletal)? @ -Differential Musculoskeletal Muscular strain, contusion, ligament sprain, fracture, arthritis, septic arthritis, bursitis, cellulitis, muscle spasm, nerve compression, DVT, arterial occlusion, herpes zoster, electrolyte abnormality, tumor.... This is not meant to be in all inclusive list EKG interpreted by me (3pts min.). @ -None X-rays interpreted by me (1pt min.). @ -None done CT interpreted by me (1pt min.). @ -None done U/S interpreted by me (1pt. min.). @ -None done What testing was considered but not performed or refused? (CT, X-rays, U/S, labs)? Why? @ -None What meds were considered but not given or refused? Why? @ -None Did you discuss the management of the patient with other professionals (professionals i.e. , [facility], [employer], lab, RT, psych nurse, medical social consultant, registered nurse cardiac telemetry, teacher, cavalry officer, returned case inspector)? Give summary @ -No Was smoking cessation discussed for >3mins.? @ -No Was critical care preformed (if so, how long)? @ -No Were there social determinants of health that impacted care today? How? (Homelessness, low income, unemployed, alcoholism, drug addiction, transportation, low edu. Level, literacy, decrease access to med. care, penitentiary, rehab)? @ -No Was there de-escalation of care discussed even if they declined (Discuss DNR or withdrawal of care, Hospice)? DNR status @ -No What co-morbidities impacted this encounter? (DM, HTN, Smoking, COPD, CAD, Cancer, CVA, ARF, Chemo, Hep., AIDS, mental health diagnosis, sleep apnea, morbid obesity)? @ -None Was patient admitted / discharged? Hospital course, mention meds given and route, prescriptions, significant lab abnormalities, going to OR and other pertinent info. @ -Discharge 62-year-old female with history of sebaceous cyst presenting to the ED with co mplaints seems to have been worsening and pain and swelling lately and notes some chills with this as well. This appeared to have formed an abscess and incision and drainage was performed. For further details please see procedure note. Patient was to be placed on Bactrim and Keflex however noted allergy to cephalosporins in the chart. Patient placed on clindamycin. Cultures were obtained. At this time vital signs stable afebrile and patient discharged home in stable condition. Discussed strict return precautions with patient who verbalized agreement. Undiagnosed new problem with uncertain prognosis? @ -No Drug Therapy requiring intensive monitoring for toxicity (Heparin, Nitro, Insulin, Cardizem)? @ -No Were any procedures done? @ -No Diagnosis/symptom? @ -Sebaceous cyst abscess Acute, or Chronic, or Acute on Chronic? @ -Acute Uncomplicated (without systemic symptoms) or Complicated (systemic symptoms)? @ -Uncomplicated Side effects of treatment? @ -No Exacerbation, Progression, or Severe Exacerbation? @ -No Poses a threat to life or bodily function? How? (Chest pain, USA, DE, pneumonia, PE, COPD, DKA, ARF, appy, cholecystitis, CVA, Diverticulitis, Homicidal, Suicidal, threat to staff... and all critical care pts) @ -No (Jameson Venegas) Disposition <Tricia Martinez - Last Filed: 03/25/23 20:21> Is patient prescribed a controlled substance at d/c from ED?: No Time of Disposition: 01:16 <Jameson Venegas - Last Filed: 03/26/23 01:16> Clinical Impression: Sebaceous cyst Disposition: HOME SELF-CARE Condition: Good Additional Instructions: Please return to the Emergency Department if symptoms worsen or any other concerns. Please follow up with your PCP and/or Dr. Restrepo. Prescriptions: Clindamycin [Cleocin] 450 mg PO Q6H 7 Days #21 cap Referrals: Elias Bermudez DO [Primary Care Provider] - 1-2 days
[2023-03-25 20:53] VITALS: TEMP 98.5
[2023-03-25] MEDS: DIPH,PERTUS(ACELL)TETVAC-LF 0.5 ML VIAL IM ONE (23:27)
[2023-03-25] MEDS: MORPHINE SULFATE 4 MG/ML SYRINGE IM STA (23:28)
[2023-03-25] MEDS: LIDOCAINE 2%-EPI 1:100,000 20 ML VIAL SQ STA (23:30)
[2023-03-26] MEDS: CLINDAMYCIN 150 MG CAP PO STA (01:28)
[2023-03-26 01:36] VITALS: BP 136/78; PULSE 86; RESP 18
== END 2023-03-26 01:34 | disposition home or self-care (01) ==
LOC: EC 20:16
DX: L72.3 Sebaceous cyst (principal); E11.9 Type 2 diabetes mellitus without complications; E78.5 Hyperlipidemia, unspecified; I10 Essential (primary) hypertension; J44.9 Chronic obstructive pulmonary disease, unspecified; E07.9 Disorder of thyroid, unspecified; F41.9 Anxiety disorder, unspecified; F32.A Depression, unspecified; Z79.899 Other long term (current) drug therapy; Z79.84 Long term (current) use of oral hypoglycemic drugs; Z23 Encounter for immunization; Z79.890 Hormone replacement therapy; Z87.891 Personal history of nicotine dependence; Z88.1 Allergy status to other antibiotic agents; Z88.8 Allergy status to other drugs, medicaments and biological substances
CPT/HCPCS: 99283 ×2; 90471 ×2; 10060 ×2; 87070; 87205; 87075; 90715; 96372; J2270

== ENCOUNTER 2023-04-19 17:58 | Emergency (ER) | payer OTHER ==
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
[2023-04-19 20:02] LABS: Basophils # (A) 0.1 k/uL (0-0.2); Basophils % (A) 1 %; Eosinophils # (A) 0.1 k/uL (0-0.7); Eosinophils % (A) 1 %; HCT 39.5 % (34.0-46.0); HGB 13.4 gm/dL (11.4-16.0); Lymphocytes # (A) 2.6 k/uL (1.0-4.8); Lymphocytes % (A) 28 %; MCH 30.1 pg (25.0-35.0); MCV 88.5 fL (80.0-100.0); Mean Platelet Volume 7.7; Monocytes # (A) 0.5 k/uL (0-1.0); Monocytes % (A) 6 %; Neutrophils # (A) 5.8 k/uL (1.3-7.7); Neutrophils % (A) 63 %; Platelet Count 304 k/uL (150-450); RBC 4.46 m/uL (3.80-5.40); WBC 9.2 k/uL (3.8-10.6)
[2023-04-19] MEDS: SODIUM CHLORIDE 0.9% 1,000 ML IV ONE (20:07)
[2023-04-19 20:16] LABS: ALT 15 U/L (4-34); AST 23 U/L (14-36); Acetaminophen <10.0 ug/mL; African American GFR (CKD) >90 (>60 ml/min/1.73 sqM); Albumin 3.6 g/dL (3.5-5.0); Alcohol <10 mg/dL; Alkaline Phosphatase 96 U/L (38-126); Anion Gap 4 mmol/L; Blood Urea Nitrogen 8 mg/dL (7-17); Calcium 8.9 mg/dL (8.4-10.2); Carbon Dioxide 22 mmol/L (22-30); Chloride 109 mmol/L (98-107); Glucose 133 mg/dL (74-99); Non-African American GFR(CKD) >90 (>60 ml/min/1.73 sqM); Potassium 4.3 mmol/L (3.5-5.1); Salicylate <1.0 mg/dL; Sodium 135 mmol/L (137-145); Total Bilirubin 0.5 mg/dL (0.2-1.3); Total Protein 5.8 g/dL (6.3-8.2)
[2023-04-19 22:01] LABS: Amphetamine Screen,Urine Not Detected (NotDetected); Barbiturate Screen,Urine Not Detected (NotDetected); Benzodiazepines Screen,Urine Not Detected (NotDetected); Cocaine Screen,Urine Not Detected (NotDetected); Methadone Screen, Urine Not Detected (NotDetected); Opiate Screen,Urine Not Detected (NotDetected); Oxycodone Screen, Urine Not Detected (NotDetected); Phencyclidine Screen,Urine Not Detected (NotDetected); Tricyclic Antidepressant,Urine Not Detected (NotDetected); Urn Cannabinoid Scrn Detected (NotDetected)
[2023-04-19 22:06] LABS: Appearance,Urine Clear (Clear); Bilirubin,Urine Negative (Negative); Blood,Urine Negative (Negative); Color,Urine Colorless; Glucose,Urine (UA) Negative (Negative); Ketones,Urine Negative (Negative); Leukocyte Esterase,Urine Negative (Negative); Nitrite,Urine Negative (Negative); PH, Urine 5.5 (5.0-8.0); Protein,Urine Negative (Negative); Specific Gravity,Urine 1.009 (1.001-1.035); Urobilinogen,Urine <2.0 mg/dL (<2.0)
[2023-04-20] MEDS: SODIUM CHLORIDE 0.9% 1,000 ML IV SCH (02:49)
[2023-04-20] MEDS: LEVOTHYROXINE 25 MCG TAB PO SCH (15:27)
[2023-04-20] MEDS: ACETAMINOPHEN TAB 500 MG TAB PO STA (19:17)
[2023-04-21] MEDS ORDERED: tiZANidine 4 MG TAB PO PRN (00:10)
[2023-04-21] MEDS ORDERED: hydrOXYzine pamoate 25 MG CAP PO PRN (00:10)
[2023-04-21] MEDS: traZODone HCL 100 MG TAB PO SCH (00:25)
[2023-04-21 05:27] VITALS: TEMP 97.8
[2023-04-21] MEDS: EZETIMIBE 10 MG TAB PO SCH (08:26)
[2023-04-21] MEDS: amLODIPine 10 MG TAB PO SCH (08:26)
[2023-04-21] MEDS: buPROPion XL 300 MG TAB.ER.24H PO SCH (08:26)
[2023-04-21] MEDS: PANTOPRAZOLE 40 MG TABLET PO SCH (08:26)
[2023-04-21] MEDS: ATORVASTATIN 20 MG TAB PO SCH (08:26)
[2023-04-21] MEDS: lisinopriL 20 MG TAB PO SCH (08:27)
[2023-04-21] MEDS: LORATADINE 10 MG TAB PO SCH (08:27)
[2023-04-21] MEDS: NON FORMULARY DRUG (Dulaglutide [Trulicity] 1.5 MG/0.5 ML Each) SQ SCH (08:28)
[2023-04-21] MEDS ORDERED: LEVOTHYROXINE 25 MCG TAB PO SCH ×2 (09:00→15:00)
[2023-04-21 14:36] LABS: Glucose,Whole Blood 173 mg/dL (70-110)
[2023-04-21 14:43] VITALS: BP 130/80; PULSE 78; RESP 18
[2023-04-21] MEDS: SUMAtriptan succinate 50 MG TAB PO PRN (15:09)
== END 2023-04-21 15:31 ==
LOC: EC 17:58
DX: T50.902A Poisoning by unspecified drugs, medicaments and biological substances, intentional self-harm, initial encounter (principal); T14.91XA Suicide attempt, initial encounter; I10 Essential (primary) hypertension; E11.9 Type 2 diabetes mellitus without complications; E78.5 Hyperlipidemia, unspecified; F41.9 Anxiety disorder, unspecified; J44.9 Chronic obstructive pulmonary disease, unspecified; E07.9 Disorder of thyroid, unspecified; F32.A Depression, unspecified; F12.90 Cannabis use, unspecified, uncomplicated; Z79.890 Hormone replacement therapy; Z79.899 Other long term (current) drug therapy; Z87.891 Personal history of nicotine dependence; Z88.1 Allergy status to other antibiotic agents; Z88.8 Allergy status to other drugs, medicaments and biological substances; Z90.49 Acquired absence of other specified parts of digestive tract; Z20.822 Contact with and (suspected) exposure to COVID-19
CPT/HCPCS: 82075; 36415 ×2; 93005; 80053; 85025; 81003; 80306; 80143; 87635; 80179; 99285; 96360; 96361 ×21; G0480; 80320